=== PATIENT | female | born 1985 | race Caucasian/White ===

== ENCOUNTER → 2019-04-04 13:48 | Outpatient (BNVA) | payer MEDICARE, MEDICAID, SELFPAY | PROVIDERS: Family Provider Nurse Practitioner Family; PCP Nurse Practitioner Family; Visit Provider Nurse Practitioner Psychiatric/Mental Health | DX: F33.2 Major depressive disorder, recurrent severe without psychotic features (principal); F43.12 Post-traumatic stress disorder, chronic; F41.1 Generalized anxiety disorder; F60.3 Borderline personality disorder | CPT/HCPCS: 99214 ==

== ENCOUNTER → 2019-05-02 13:27 | Outpatient (BNVA) | payer MEDICARE, MEDICAID, SELFPAY | PROVIDERS: Family Provider Nurse Practitioner Family; PCP Nurse Practitioner Family; Visit Provider Nurse Practitioner Psychiatric/Mental Health | DX: F34.0 Cyclothymic disorder (principal); F41.1 Generalized anxiety disorder; F43.12 Post-traumatic stress disorder, chronic; F60.3 Borderline personality disorder | CPT/HCPCS: 99214 ==

== ENCOUNTER → 2019-06-04 07:20 | Outpatient (BNVA) | payer MEDICARE, MEDICAID, SELFPAY | PROVIDERS: Family Provider Nurse Practitioner Family; PCP Nurse Practitioner Family; Visit Provider Nurse Practitioner Psychiatric/Mental Health | DX: F31.32 Bipolar disorder, current episode depressed, moderate (principal); F41.1 Generalized anxiety disorder; F43.12 Post-traumatic stress disorder, chronic; F60.3 Borderline personality disorder | CPT/HCPCS: 99214 ==

== ENCOUNTER → 2019-06-06 09:00 | Outpatient (BNVA) | payer MEDICARE, MEDICAID, SELFPAY | PROVIDERS: Family Provider Nurse Practitioner Family; PCP Nurse Practitioner Family; Visit Provider Social Worker | DX: F31.32 Bipolar disorder, current episode depressed, moderate (principal); F60.3 Borderline personality disorder; F41.1 Generalized anxiety disorder; F43.12 Post-traumatic stress disorder, chronic | CPT/HCPCS: 90834 ==

== ENCOUNTER → 2019-07-03 08:12 | Outpatient (BNVA) | payer MEDICARE, MEDICAID, SELFPAY | PROVIDERS: Family Provider Nurse Practitioner Family; PCP Nurse Practitioner Family; Visit Provider Nurse Practitioner Psychiatric/Mental Health | DX: F31.32 Bipolar disorder, current episode depressed, moderate (principal); F41.1 Generalized anxiety disorder; F43.12 Post-traumatic stress disorder, chronic; F60.3 Borderline personality disorder | CPT/HCPCS: 99214 ==

== ENCOUNTER → 2019-07-31 07:35 | Outpatient (BNVA) | payer MEDICARE, MEDICAID, SELFPAY | PROVIDERS: Family Provider Nurse Practitioner Family; PCP Nurse Practitioner Family; Visit Provider Nurse Practitioner Psychiatric/Mental Health | DX: F31.32 Bipolar disorder, current episode depressed, moderate (principal); F41.1 Generalized anxiety disorder; F43.12 Post-traumatic stress disorder, chronic; F60.3 Borderline personality disorder | CPT/HCPCS: 99214 ==

== ENCOUNTER → 2019-10-23 08:26 | Outpatient (BNVA) | payer MEDICARE, MEDICAID, SELFPAY | PROVIDERS: Family Provider Nurse Practitioner Family; PCP Nurse Practitioner Family; Visit Provider Nurse Practitioner Psychiatric/Mental Health | DX: F31.32 Bipolar disorder, current episode depressed, moderate (principal); F41.1 Generalized anxiety disorder; F43.12 Post-traumatic stress disorder, chronic; F60.3 Borderline personality disorder | CPT/HCPCS: 99214 ==

== ENCOUNTER → 2019-12-18 08:03 | Outpatient (BNVA) | payer OTHER, MEDICAID, SELFPAY | PROVIDERS: Family Provider Nurse Practitioner Family; PCP Nurse Practitioner Family; Visit Provider Nurse Practitioner Psychiatric/Mental Health | DX: F31.32 Bipolar disorder, current episode depressed, moderate (principal); F41.1 Generalized anxiety disorder; F43.12 Post-traumatic stress disorder, chronic; F60.3 Borderline personality disorder | CPT/HCPCS: 99214 ==

== ENCOUNTER → 2020-01-16 08:29 | Outpatient (BNVA) | payer OTHER, MEDICAID, SELFPAY | PROVIDERS: Family Provider Nurse Practitioner Family; PCP Nurse Practitioner Family; Visit Provider Nurse Practitioner Psychiatric/Mental Health | DX: F31.32 Bipolar disorder, current episode depressed, moderate (principal); F41.1 Generalized anxiety disorder; F43.12 Post-traumatic stress disorder, chronic; F60.3 Borderline personality disorder; F33.1 Major depressive disorder, recurrent, moderate | CPT/HCPCS: 99214 ==

== ENCOUNTER → 2020-02-13 08:47 | Outpatient (BNVA) | payer OTHER, MEDICAID, SELFPAY | PROVIDERS: Family Provider Nurse Practitioner Family; PCP Nurse Practitioner Family; Visit Provider Nurse Practitioner Psychiatric/Mental Health | DX: F31.32 Bipolar disorder, current episode depressed, moderate (principal); F41.1 Generalized anxiety disorder; F43.12 Post-traumatic stress disorder, chronic; F60.3 Borderline personality disorder | CPT/HCPCS: 99214 ==

== ENCOUNTER → 2020-03-02 13:44 | Outpatient (BNVA) | payer OTHER, MEDICAID, SELFPAY | PROVIDERS: Family Provider Nurse Practitioner Family; PCP Nurse Practitioner Family; Visit Provider Family Medicine | DX: L73.8 Other specified follicular disorders (principal); R29.898 Other symptoms and signs involving the musculoskeletal system | CPT/HCPCS: 36416; 82947; 82962 ==

== ENCOUNTER → 2020-03-12 14:00 | Outpatient (BNVA) | payer OTHER, MEDICAID, SELFPAY | PROVIDERS: Family Provider Nurse Practitioner Family; PCP Nurse Practitioner Family; Visit Provider Family Medicine | DX: L73.8 Other specified follicular disorders (principal); R29.898 Other symptoms and signs involving the musculoskeletal system | CPT/HCPCS: 87070; 87205 ==

== ENCOUNTER → 2020-03-26 09:30 | Outpatient (BNVA) | payer OTHER, MEDICAID, SELFPAY | PROVIDERS: Family Provider Nurse Practitioner Family; PCP Nurse Practitioner Family; Visit Provider Nurse Practitioner Psychiatric/Mental Health | DX: F31.32 Bipolar disorder, current episode depressed, moderate (principal); F41.1 Generalized anxiety disorder; F43.12 Post-traumatic stress disorder, chronic; F60.3 Borderline personality disorder | CPT/HCPCS: 99214 ==

== ENCOUNTER → 2020-04-30 08:24 | Outpatient (BNVA) | payer OTHER, MEDICAID, SELFPAY | PROVIDERS: Family Provider Nurse Practitioner Family; PCP Nurse Practitioner Family; Visit Provider Nurse Practitioner Psychiatric/Mental Health | DX: Z87.898 Personal history of other specified conditions (principal); F31.32 Bipolar disorder, current episode depressed, moderate; F41.1 Generalized anxiety disorder | CPT/HCPCS: 99214 ==

== ENCOUNTER → 2020-05-27 08:21 | Outpatient (BNVA) | payer OTHER, SELFPAY | PROVIDERS: Family Provider Nurse Practitioner Family; PCP Nurse Practitioner Family; Visit Provider Nurse Practitioner Psychiatric/Mental Health | DX: F31.32 Bipolar disorder, current episode depressed, moderate (principal); F41.1 Generalized anxiety disorder; F43.12 Post-traumatic stress disorder, chronic; F60.3 Borderline personality disorder; Z87.898 Personal history of other specified conditions | CPT/HCPCS: 99214 ==

== ENCOUNTER 2020-06-30 20:00 | Outpatient (CLI) | payer MEDICARE, MEDICAID, SELFPAY | END 2020-06-30 20:01 | disposition home or self-care (01) | LOC: SLEEP 07-01 09:26 | PROVIDERS: Family Provider Nurse Practitioner Family; PCP Nurse Practitioner Family; Visit Provider Nurse Practitioner Psychiatric/Mental Health | DX: Z87.898 Personal history of other specified conditions (principal); R06.83 Snoring; R53.83 Other fatigue | CPT/HCPCS: 95810 ==

== ENCOUNTER → 2020-07-06 08:40 | Outpatient (BNVA) | payer MEDICARE, MEDICAID, SELFPAY | PROVIDERS: Family Provider Nurse Practitioner Family; PCP Nurse Practitioner Family; Visit Provider Nurse Practitioner Psychiatric/Mental Health | DX: F41.1 Generalized anxiety disorder (principal); F31.32 Bipolar disorder, current episode depressed, moderate; F43.12 Post-traumatic stress disorder, chronic; F60.3 Borderline personality disorder; Z87.898 Personal history of other specified conditions | CPT/HCPCS: 99214 ==

== ENCOUNTER → 2020-08-10 07:56 | Outpatient (BNVA) | payer MEDICARE, MEDICAID, SELFPAY | PROVIDERS: Family Provider Nurse Practitioner Family; PCP Nurse Practitioner Family; Visit Provider Nurse Practitioner Psychiatric/Mental Health | DX: F31.32 Bipolar disorder, current episode depressed, moderate (principal); F41.1 Generalized anxiety disorder; F43.12 Post-traumatic stress disorder, chronic; F60.3 Borderline personality disorder | CPT/HCPCS: 99214 ==

== ENCOUNTER → 2020-10-05 07:12 | Outpatient (BNVA) | payer MEDICARE, MEDICAID, SELFPAY | PROVIDERS: Family Provider Nurse Practitioner Family; PCP Nurse Practitioner Family; Visit Provider Nurse Practitioner Psychiatric/Mental Health | DX: F31.32 Bipolar disorder, current episode depressed, moderate (principal); F41.1 Generalized anxiety disorder; F43.12 Post-traumatic stress disorder, chronic; F60.3 Borderline personality disorder; Z79.899 Other long term (current) drug therapy | CPT/HCPCS: 99214 ==

== ENCOUNTER → 2020-10-07 09:01 | Outpatient (BNVA) | payer MEDICARE, MEDICAID, SELFPAY | PROVIDERS: Family Provider Nurse Practitioner Family; PCP Nurse Practitioner Family; Visit Provider Nurse Practitioner Psychiatric/Mental Health | DX: Z79.899 Other long term (current) drug therapy (principal); E78.5 Hyperlipidemia, unspecified | CPT/HCPCS: 80053; 80061; 83036 ==

== ENCOUNTER 2020-10-14 06:47 | Outpatient (CLI) | payer MEDICARE, MEDICAID, SELFPAY ==
--- NOTE | 2020-10-14 07:04 | US_ITS ---
WS: [id number] ULTRASOUND ABDOMEN CLINICAL INFORMATION: E78.5 - Hyperlipidemia, unspecified COMPARISON: None. FINDINGS: Liver Size: Enlarged Craniocaudal length: 16.1 cm. Echogenicity: Dense Surface nodularity: None. Mass (size and location): None. Bile ducts Intrahepatic ducts: Normal. Common bile duct diameter: 0.3 cm. Gallbladder Normal. Gallstones: None. Gallbladder sludge: None. Gallbladder wall thickening: None. Pericholecystic fluid: None. Sonographic Huerta sign: Absent. Pancreas Normal as visualized. Tail not well visualized. Spleen Splenomegaly: Enlarged Craniocaudal length: 13.3 cm. Right kidney: Normal. Hydronephrosis: None. Size: 10.7 cm x 5.0 cm x 4.7 cm Left kidney: Normal. Hydronephrosis: None. Size: 12.9 cm x 5.4 cm x 5.5 cm. Abdominal aorta and IVC Visualized portions are normal. Ascites: None. US/US abdomen complete* [id number] IMPRESSION: 1. Mild hepatomegaly with diffuse fatty infiltration. 2. Normal gallbladder. Normal common bile duct. 3. No hydronephrosis in either kidney. 4. Mild splenomegaly. 5. No ascites.
== END 2020-10-14 06:48 | disposition home or self-care (01) ==
LOC: RAD 06:55
PROVIDERS: PCP Family Medicine; Visit Provider Family Medicine
DX: E78.5 Hyperlipidemia, unspecified (principal); R16.0 Hepatomegaly, not elsewhere classified; K76.0 Fatty (change of) liver, not elsewhere classified; R16.1 Splenomegaly, not elsewhere classified
CPT/HCPCS: 76700

== ENCOUNTER → 2020-11-27 07:31 | Outpatient (BNVA) | payer MEDICARE, MEDICAID, SELFPAY | PROVIDERS: PCP Family Medicine; Visit Provider Nurse Practitioner Psychiatric/Mental Health | DX: F31.32 Bipolar disorder, current episode depressed, moderate (principal); F41.1 Generalized anxiety disorder; F43.12 Post-traumatic stress disorder, chronic; F60.3 Borderline personality disorder | CPT/HCPCS: 99214 ==

== ENCOUNTER → 2020-12-24 11:09 | Outpatient (BNVA) | payer MEDICARE, MEDICAID, SELFPAY | PROVIDERS: PCP Family Medicine; Visit Provider Family Medicine | DX: E78.5 Hyperlipidemia, unspecified (principal); L65.9 Nonscarring hair loss, unspecified; F31.32 Bipolar disorder, current episode depressed, moderate | CPT/HCPCS: 80053; 80061; 84439; 84443 ==

== ENCOUNTER → 2021-01-22 08:19 | Outpatient (BNVA) | payer MEDICARE, MEDICAID, SELFPAY | PROVIDERS: PCP Family Medicine; Visit Provider Nurse Practitioner Psychiatric/Mental Health | DX: F31.32 Bipolar disorder, current episode depressed, moderate (principal); F41.1 Generalized anxiety disorder; F43.12 Post-traumatic stress disorder, chronic; F60.3 Borderline personality disorder | CPT/HCPCS: 99214 ==

== ENCOUNTER 2021-02-25 10:03 | Outpatient (CLI) | payer MEDICARE, MEDICAID, SELFPAY ==
[2021-02-25 10:51] VITALS: BMI 38.9
[2021-02-25 11:30] VITALS: BP 115/81; PULSE 87; RESP 16; TEMP 36.8; O2SAT 95
[2021-02-25 12:30] VITALS: BP 112/80; PULSE 88; RESP 16; TEMP 37; O2SAT 97
== END 2021-02-25 10:04 | disposition home or self-care (01) ==
LOC: OPS 10:04
PROVIDERS: PCP Family Medicine; Visit Provider Nurse Practitioner Family
DX: U07.1 COVID-19 (principal)
CPT/HCPCS: 96365

== ENCOUNTER → 2021-03-08 07:46 | Outpatient (BNVA) | payer MEDICARE, MEDICAID, SELFPAY | PROVIDERS: PCP Family Medicine; Visit Provider Nurse Practitioner Psychiatric/Mental Health | DX: F31.32 Bipolar disorder, current episode depressed, moderate (principal); F41.1 Generalized anxiety disorder; F43.12 Post-traumatic stress disorder, chronic; F60.3 Borderline personality disorder | CPT/HCPCS: 99214 ==

== ENCOUNTER → 2021-03-10 09:17 | Outpatient (BNVA) | payer MEDICARE, MEDICAID, SELFPAY | PROVIDERS: PCP Family Medicine; Visit Provider Family Medicine | DX: E03.9 Hypothyroidism, unspecified (principal) | CPT/HCPCS: 84439; 84443 ==

== ENCOUNTER → 2021-04-19 08:20 | Outpatient (BNVA) | payer MEDICARE, MEDICAID, SELFPAY | PROVIDERS: PCP Family Medicine; Visit Provider Nurse Practitioner Psychiatric/Mental Health | DX: F31.32 Bipolar disorder, current episode depressed, moderate (principal); F41.1 Generalized anxiety disorder; F43.12 Post-traumatic stress disorder, chronic; F60.3 Borderline personality disorder | CPT/HCPCS: 99214 ==

== ENCOUNTER → 2021-05-31 08:00 | Outpatient (BNVA) | payer MEDICARE, MEDICAID, SELFPAY | PROVIDERS: PCP Family Medicine; Visit Provider Nurse Practitioner Psychiatric/Mental Health | DX: F31.32 Bipolar disorder, current episode depressed, moderate (principal); F41.1 Generalized anxiety disorder; F43.12 Post-traumatic stress disorder, chronic; F60.3 Borderline personality disorder | CPT/HCPCS: 99214 ==

== ENCOUNTER → 2021-07-26 13:08 | Outpatient (BNVA) | payer MEDICARE, MEDICAID, SELFPAY | PROVIDERS: PCP Family Medicine; Visit Provider Nurse Practitioner Psychiatric/Mental Health | DX: F31.32 Bipolar disorder, current episode depressed, moderate (principal); F41.1 Generalized anxiety disorder; F43.12 Post-traumatic stress disorder, chronic; F60.3 Borderline personality disorder; Z79.899 Other long term (current) drug therapy | CPT/HCPCS: 99214 ==

== ENCOUNTER → 2021-08-27 07:06 | Outpatient (BNVA) | payer MEDICARE, MEDICAID, SELFPAY | PROVIDERS: PCP Family Medicine; Visit Provider Nurse Practitioner Psychiatric/Mental Health | DX: F31.32 Bipolar disorder, current episode depressed, moderate (principal); F41.1 Generalized anxiety disorder; F43.12 Post-traumatic stress disorder, chronic; F60.3 Borderline personality disorder; Z79.899 Other long term (current) drug therapy | CPT/HCPCS: 99214 ==

== ENCOUNTER → 2022-01-12 10:36 | Outpatient (BNVA) | payer MEDICARE, MEDICAID, SELFPAY | PROVIDERS: PCP Family Medicine; Visit Provider Nurse Practitioner Family | DX: R05.9 Cough, unspecified (principal); Z20.822 Contact with and (suspected) exposure to COVID-19; J32.1 Chronic frontal sinusitis | CPT/HCPCS: 87400; 87426 ==

== ENCOUNTER → 2022-02-04 09:02 | Outpatient (BNVA) | payer MEDICARE, MEDICAID, SELFPAY | PROVIDERS: PCP Family Medicine; Visit Provider Nurse Practitioner Psychiatric/Mental Health | DX: Z79.899 Other long term (current) drug therapy (principal) | CPT/HCPCS: 80053; 80061; 83036 ==

== ENCOUNTER → 2022-03-10 09:02 | Outpatient (BNVA) | payer MEDICARE, MEDICAID, SELFPAY | PROVIDERS: PCP Family Medicine; Visit Provider Nurse Practitioner Family | DX: R05.9 Cough, unspecified (principal) | CPT/HCPCS: 87400 ==

== ENCOUNTER 2022-05-23 09:12 | Outpatient (CLI) | payer MEDICARE, MEDICAID, OTHER, SELFPAY ==
--- NOTE | 2022-05-23 11:19 | ECG_ITS ---
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 Measurements Intervals Barry Rate: 87 P: 48 MA: 155 QRS: 27 QRSD: 94 T: 41 QT: 370 QTc: 446 Interpretive Statements SINUS RHYTHM POSSIBLE LEFT ATRIAL ENLARGEMENT [-0.1mV P-WAVE IN V1/V2] NONSPECIFIC T-WAVE ABNORMALITY No previous ECG available for comparison Electronically Signed On 05-23-2022 16:05:05 CDT by Slade Hernandez M.D. [id number] f
== END 2022-05-23 09:13 | disposition home or self-care (01) ==
LOC: RAD 09:20
PROVIDERS: PCP Family Medicine; Visit Provider Family Medicine
DX: Z76.89 Persons encountering health services in other specified circumstances (principal)
CPT/HCPCS: 93005

== ENCOUNTER 2022-07-04 06:00 | Outpatient (RCR) | payer MEDICARE, SELFPAY | END 2022-08-03 23:59 | disposition home or self-care (01) | LOC: GPT 06:00 | PROVIDERS: Visit Provider Nurse Practitioner Family | DX: M22.2X1 Patellofemoral disorders, right knee (principal); M25.561 Pain in right knee; M76.51 Patellar tendinitis, right knee; R26.2 Difficulty in walking, not elsewhere classified | CPT/HCPCS: 97110; 97162 ==

== ENCOUNTER → 2022-07-06 10:49 | Outpatient (BNVA) | payer MEDICARE, SELFPAY | PROVIDERS: PCP Family Medicine; Visit Provider Nurse Practitioner Family | DX: M17.11 Unilateral primary osteoarthritis, right knee (principal); G89.29 Other chronic pain | CPT/HCPCS: 73562 ==

== ENCOUNTER → 2022-07-14 08:52 | Outpatient (BNVA) | payer MEDICARE, SELFPAY | PROVIDERS: PCP Family Medicine; Visit Provider Nurse Practitioner Family | DX: M25.561 Pain in right knee (principal); G89.29 Other chronic pain | CPT/HCPCS: 99214 ==

== ENCOUNTER 2022-07-14 10:48 | Outpatient (CLI) | payer MEDICARE, SELFPAY | END 2022-07-14 10:49 | disposition home or self-care (01) | LOC: SPT 10:48 | PROVIDERS: PCP Family Medicine; Visit Provider Nurse Practitioner Family | DX: Z46.89 Encounter for fitting and adjustment of other specified devices (principal); G89.29 Other chronic pain; M25.561 Pain in right knee | CPT/HCPCS: 97760; L1812 ==

== ENCOUNTER 2022-08-04 06:00 | Outpatient (RCR) | payer MEDICARE, SELFPAY | END 2022-09-02 23:59 | disposition home or self-care (01) | LOC: GPT 06:00 | PROVIDERS: Visit Provider Nurse Practitioner Family | DX: M25.561 Pain in right knee (principal); M22.2X1 Patellofemoral disorders, right knee | CPT/HCPCS: 97110; 97112; 97140; 97530 ==

== ENCOUNTER → 2022-08-31 08:23 | Outpatient (BNVA) | payer MEDICARE, SELFPAY | PROVIDERS: Visit Provider Nurse Practitioner Family | DX: M25.561 Pain in right knee (principal); G89.29 Other chronic pain | CPT/HCPCS: 99213 ==

== ENCOUNTER 2022-09-03 06:00 | Outpatient (RCR) | payer MEDICARE, SELFPAY | END 2022-10-03 23:59 | disposition home or self-care (01) | LOC: GPT 06:00 | PROVIDERS: PCP Family Medicine; Visit Provider Nurse Practitioner Family | DX: M25.561 Pain in right knee (principal); M22.2X1 Patellofemoral disorders, right knee | CPT/HCPCS: 97110; 97112; 97164; 97530 ==

== ENCOUNTER 2022-09-09 08:08 | Observation (INO) | payer MEDICARE, SELFPAY ==
[2022-09-09 08:12] VITALS: BP 162/116; PULSE 76; RESP 17; TEMP 36.7; O2SAT 100; BMI 38.0
[2022-09-09] MEDS: valproic acid inj 500 MG in sodium chloride 0.9% 50 ML 55 MG IV (09:26)
--- NOTE | 2022-09-09 09:27 | W.ED.HA ---
HPI - Headache General: Chief Complaint: Headache Stated Complaint: Head pain, N/V Time Seen by Provider: 09/09/22 08:21 Source: patient Mode of arrival: ambulatory History of Present Illness: 37-year-old female presents emergency room complaining of migraine with persistent nausea and vomiting. She has had difficulty with hyperemesis in the past. She denies any hematemesis or coffee-ground emesis no dysuria urgency or frequency no fever no recent head trauma. MD elicited complaint: migraine Onset (ago): hour(s) Onset description: gradually Location: frontal Severity: moderate Quality & Timing: throbbing Associated symptoms: Reports malaise and nausea; Deny chest pain, confusion, cough, eye pain, eye redness, fever(s), lightheadedness, loss of vision, neck stiffness, numbness, paresthesias, photophobia, pre-syncope, rash, seizures, short of breath, sound sensitivity, syncope, vomiting or weakness Review of Systems Const: Reports: malaise; Denies: fever(s) or chills Card: Denies: chest pain, lightheadedness, syncope or pre-syncope Resp: Denies: dyspnea, productive cough or non-productive cough GI: Reports: abdominal pain and nausea; Denies: vomiting : Denies: flank pain, difficulty voiding, dysuria, urinary frequency or urinary urgency Skin/Breast: Denies: rash Neuro: Denies: confusion PFSH ED PFSH: Medical History Bereavement Loss of on 05/13/22 Bipolar I disorder, most recent episode mixed, severe without psychotic features Borderline personality disorder Chronic post-traumatic stress disorder Generalized anxiety disorder Medical marijuana use Pain, Migraines Migraine Psychiatric care Social History Smoking and tobacco status: never smoked Alcohol intake: never Substance/Drug Use: current Other substance/drug use details: Medical marijuana Physical Exam Const: GENERAL APPEARANCE: cooperative and comfortable ORIENTATION/CONSCIOUSNESS: Yes awake, Yes oriented to person, Yes oriented to place and Yes oriented to time HENMT: COMMON NORMALS: normocephalic, atraumatic and hearing grossly normal bilaterally HEAD & SCALP: normocephalic and atraumatic Eye: DIRECT OPHTHALMOSCOPY: No photophobia Resp: COMMON NORMALS: normal respiratory effort, No retractions, No use of accessory muscles and clear to auscultation bilaterally AUSCULTATION: clear to auscultation bilaterally Cardio: COMMON NORMALS: regular rate, regular rhythm and No murmurs present (Cardio) RATE: regular rate RHYTHM: regular rhythm GI: COMMON NORMALS: Soft to palpation and No hepatosplenomegaly present AUSCULTATION: Yes normoactive bowel sounds PALPATION: Yes Soft to palpation, No Tenderness to palpation present (GI), No Guarding due to palpation present (GI) and Yes No hepatosplenomegaly present Extremity: COMMON NORMALS: normal to inspection, capillary refill normal, no clubbing, cyanosis or edema, no calf tenderness and no pedal edema Neuro: SENSORIUM/ORIENTATION: Yes oriented to person, Yes oriented to place and Yes oriented to time Skin: COMMON NORMALS: no rashes or lesions noted GENERAL SKIN EXAM: no rashes or lesions noted Course Vital Signs: Vital signs: Vital Signs Temperature 97.7 F 09/10/22 16:00 Pulse Rate 83 09/10/22 16:00 Respiratory Rate 16 09/10/22 16:00 Blood Pressure 141/81 09/10/22 16:00 Pulse Oximetry 96 09/10/22 16:00 Oxygen Delivery Me thod Room Air 09/10/22 04:00 MDM - Headache Medical Decision Making Patient has had several different medications as well as fluids she still having persistent nausea vomiting her lactate is elevated think it is from nausea and vomiting. Additionally she is mildly hypokalemic. Will admit for persistent nausea vomiting placed on observation discussed with hospitalist orders written. CT head negative. Medical Records I reviewed the patient's medical records. Lab Data I reviewed the patient's lab results. 09/10/22 09:39 09/10/22 09:39 Radiology Impressions Abdomen/Pelvis CT 09/09/22 12:22 Impression: Negative for acute intra-abdominal or pelvic abnormalities. Head CT 09/09/22 12:22 Impression: Negative CT scan of the head unchanged Chest X-Ray 09/09/22 16:03 IMPRESSION: No acute findings. Laboratory Results WBC 13.9 10^3/uL (4.0-10.0) H 09/09/22 09:28 RBC 4.75 10^6/uL (4.1-5.3) 09/09/22 09: Hgb 14.4 g/dL (11.5-15.3) 09/09/22 09: Hct 44.1 % (37.0-47.0) 09/09/22 09: MCV 92.8 fl (81-99) 09/09/22 09: MCH 30.3 pg (28.0-34.0) 09/09/22 09: MCHC 32.7 g/dL (30.0-36.0) 09/09/22 09: RDW 14.3 % (12.1-15.1) 09/09/22 09: Plt Count 248 10^3/cmm (130-400) 09/09/22 09: MPV 11.2 fL (7.4-10.4) H 09/09/22 09: Neut % (Auto) 87.0 % 09/09/22 09: Lymph % (Auto) 7.4 % 09/09/22 09: [place] % (Auto) 4.5 % 09/09/22 09: Eos % (Auto) 0.1 % 09/09/22 09: Baso % (Auto) 0.3 % 09/09/22 09: Neut # (Auto) 12.09 10^3/uL (1.8-7.7) H 09/09/22 09: Lymph # (Auto) 1.0 10^3/uL (0.8-4.8) 09/09/22 09: [place] # (Auto) 0.6 10^3/uL (0.2-0.9) 09/09/22 09: Eos # (Auto) 0.0 10^3/uL (0.0-0.8) 09/09/22 09: Baso # (Auto) 0.0 10^3/uL (0.0-0.1) 09/09/22 09: Nucleated RBC % (auto) 0 % 09/09/22 09: Nucleated RBCs # 0.0 /100WBC 09/09/22 09: Sodium 137 mmol/L (136-145) 09/09/22 09: Potassium 3.2 mmol/L (3.5-5.1) L 09/09/22 09:28 Chloride 97 mmol/L (98-107) L 09/09/22 09:28 Carbon Dioxide 18 mmol/L (22-29) L 09/09/22 09:28 Anion Gap 25.2 (5-19) H 09/09/22 09:28 BUN 11 mg/dL (6-20) 09/09/22 09:28 Creatinine 0.8 mg/dL (0.5-0.9) 09/09/22 09:28 GFR Calculation 79.9 mL/min (90-130) L 09/09/22 09:28 Glucose 155 mg/dL (65-115) H 09/09/22 09:28 Calculated Osmolality 287 mOsm/kg (285-295) 09/09/22 09:28 Lactic Acid 5.4 mmol/L (0.5-2.2) H* 09/09/22 14:27 Lactic Acid (Sepsis) 2.4 mmol/L (0.5-2.2) H 09/09/22 16:38 Calcium 9.6 mg/dL (8.5-10.5) 09/09/22 09:28 Magnesium 1.5 mg/dL (1.7-2.3) L 09/09/22 14:27 Total Bilirubin 0.3 mg/dL (0.15-1.2) 09/09/22 09:28 AST 21 U/L (0-32) 09/09/22 09:28 ALT 36 U/L (0-33) H 09/09/22 09:28 Alkaline Phosphatase 59 U/L (35-105) 09/09/22 09:28 Creatine Kinase 301 U/L (26-192) H 09/09/22 14:27 Total Protein 8.4 g/dL (6.6-8.7) 09/09/22 09:28 Albumin 5.2 g/dL (3.5-5.2) 09/09/22 09:28 Globulin 3.2 g/dL (1.3-4.6) 09/09/22 09:28 Lipase 16 U/L (13-60) 09/09/22 09:28 Urine Color Yellow (Yellow) 09/09/22 12:23 Urine Appearance Clear (CLEAR) 09/09/22 12:23 Urine pH 9 (5-7) H 09/09/22 12:23 Ur Specific [place] 1.015 (1.005-1.030) 09/09/22 12:23 Urine Protein Neg (Negative) 09/09/22 12:23 Urine Glucose (UA) 1+ (Normal) H 09/09/22 12:23 Urine Ketones 2+ (Negative) H 09/09/22 12:23 Urine Blood Neg (Negative) 09/09/22 12:23 Urine Nitrate Negative (Negative) 09/09/22 12:23 Urine Bilirubin Neg (Negative) 09/09/22 12:23 Prot Sulfosalicylic Acd Negative (Negative) 09/09/22 12:23 Urine Urobilinogen Norm mg/dL (Negative) 09/09/22 12:23 Ur Leukocyte Esterase Negative (Negative) 09/09/22 12:23 Salicylates < 0.3 mg/dL (3-10) L 09/09/22 14:27 Ethyl Alcohol < 10 mg/dL (0-10) 09/09/22 14:27 Serum Ketones Negative (Negative) 09/09/22 09:28 Discharge Plan Discharge Patient Disposition: Placed in Observation Admit Provider: Jan Cao Clinical Impression: Migraine, Metabolic acidosis, Hypokalemia, Intractable cyclical vomiting with nausea Condition: Stable Discharge Orders: Discharge Order (Routine); Ordered 09/10/22 Ordered By: Jan Cao Discharge Diet: Usual diet Discharge Activity: Increase activity as tolerated Coding Level of Care Code ED Story Writer for Roxi Delgado
[2022-09-09] MEDS: promethazine 25 mg/mL SDV 1 mL IM (09:40)
[2022-09-09] MEDS: ketorolac 30 mg/mL INJ IVP (09:44)
[2022-09-09] MEDS: diphenhydrAMINE 50 mg/mL SDV 1mL 25 MG IVP (09:45)
[2022-09-09] MEDS: sodium chloride 0.9% 1,000 ML 999 ML IV ×4 (09:46→17:27)
[2022-09-09] MEDS: metoclopramide 5 mg/mL SDV 2 mL 10 MG IVP (11:58)
--- NOTE | 2022-09-09 12:22 | CT_ITS ---
WS: [id number] CT scan of the abdomen and pelvis without Oral and IV contrast. Additional two-dimensional coronal a nd sagittal reconstruction was performed. 09/09/2022 Clinical Data: Abdominal pain Comparison: CT abdomen, 08/29/2016 DLP: 901.[address] scans at [place] use at least one of these dose optimization techniques: automated e xposure control; mA and/or kV adjustment per patient size (includes targeted exams where dose is matc hed to clinical indication); or iterative reconstruction. Findings: The lower lungs show no nodules, masses or effusions. The liver, gallbladder, spleen, adrenal glands and pancreas are normal. The kidneys show no cysts or masses. No hydronephrosis or renal calculi are seen. The abdominal aorta is normal in size. No appendicitis or diverticulitis is seen. The stomach, small bowel and colon are normal. There is mi nimal contrast in the cecum. No abscess, adenopathy, ascites, mass, obstruction or free air is seen. The bladder is unremarkable. The uterus is absent. No inguinal hernia is seen. The bones of the lower thorax, lumbar spine, pelvis, and hips are normal. CT/CT abdomen pelvis wo con [id number] Impression: Negative for acute intra-abdominal or pelvic abnormalities.
--- NOTE | 2022-09-09 12:22 | CT_ITS ---
WS: [id number] CT scan of the head, 09/09/2022 Clinical Data: headache w vomit ting Comparison: CT head, 09/24/2017 DLP: 1046.[address] scans at [facility] use at least one of these dose optimization techniques: automated e xposure control; mA and/or kV adjustment per patient size (includes targeted exams where dose is matc hed to clinical indication); or iterative reconstruction. Findings: The ventricular system is normal without shift. No recent infarct or hemorrhage is seen. There are no abnormal intracerebral masses. The cerebellum and brainstem are not remarkable. Bony windows of the skull and skull base show no fractures or erosions. The mastoid air cells, information technology internship al auditory canals, sella turcica, intraorbital contents, and paranasal sinuses are unremarkable. CT/CT head wo con* [id number] Impression: Negative CT scan of the head unchanged
[2022-09-09 12:35] LABS: Basophils % 0.3 %; Eosinophils % 0.1 %; Hematocrit 44.1 % (37.0-47.0); Hemoglobin 14.4 g/dL (11.5-15.3); Lymphocytes % 7.4 %; Mean Corpuscular HGB Conc 32.7 g/dL (30.0-36.0); Mean Corpuscular Hemoglobin 30.3 pg (28.0-34.0); Mean Corpuscular Volume 92.8 fl (81-99); Mean Platelet Volume 11.2 fL (7.4-10.4); Monocytes # 0.6 10^3/uL (0.2-0.9); Monocytes % 4.5 %; Neutrophils # 12.09 10^3/uL (1.8-7.7); Nucleated Red Blood Cells % 0 %; Platelet Count 248 10^3/cmm (130-400); Red Blood Count 4.75 10^6/uL (4.1-5.3); Red Cell Distribution Width 14.3 % (12.1-15.1); White Blood Count 13.9 10^3/uL (4.0-10.0)
[2022-09-09 12:46] LABS: Alanine Aminotransferase 36 U/L (0-33); Albumin Level 5.2 g/dL (3.5-5.2); Alkaline Phosphatase 59 U/L (35-105); Anion Gap 25.2 (5-19); Aspartate Amino Transferase 21 U/L (0-32); Blood Urea Nitrogen 11 mg/dL (6-20); Calcium 9.6 mg/dL (8.5-10.5); Carbon Dioxide 18 mmol/L (22-29); Chloride 97 mmol/L (98-107); Creatinine Clr Calc Pharmacy 105.0005; Globulin 3.2 g/dL (1.3-4.6); Glomerular Filtration Rate 79.9 mL/min (90-130); Glucose 155 mg/dL (65-115); Osmolality Calculated 287 mOsm/kg (285-295); Potassium 3.2 mmol/L (3.5-5.1); Sodium 137 mmol/L (136-145); Total Bilirubin 0.3 mg/dL (0.15-1.2); Total Protein 8.4 g/dL (6.6-8.7)
[2022-09-09 13:24] LABS: Add Urine Microscopic? NO; Charge for UA Resulting for Rev
[2022-09-09 13:37] LABS: Bilirubin Urine Neg (Negative); Blood Urine Neg (Negative); Glucose Urine UA 1+ (Normal); Ketones Urine 2+ (Negative); Leukocyte Esterase Urine Negative (Negative); Nitrate Urine Negative (Negative); Protein Urine Neg (Negative); Specific Gravity, Urine 1.015 (1.005-1.030); Sulfosalicylic Acid Urine Negative (Negative); Urine Appearance Clear (CLEAR); Urine Color Yellow (Yellow); Urobilinogen Urine Norm (Negative); pH Urine 9 (5-7)
[2022-09-09] MEDS: haloperidol inj 5 mg/mL INJ 1 mL 2.5 MG IVP (13:56)
[2022-09-09] MEDS: LORazepam 2 mg/mL INJ 1 mL IVP (13:56)
--- NOTE | 2022-09-09 14:37 | PC.PHAR ---
pt states she takes care of her own medications-pt states she still takes amitriptyline 100mg hs ext shows last filled 08/12/22 30 d/s for 100mg tabs take 200mg hs-pt states she has an old rx for phenergan 12.5mg and takes prn ext doesnt show when last filled-
[2022-09-09 14:38] LABS: Ketone (Acetest) Serum Negative (Negative)
[2022-09-09 14:43] LABS: Lipase 16 U/L (13-60)
[2022-09-09 15:12] LABS: Lactic Sepsis W/Reflex 5.4 mmol/L (0.5-2.2)
[2022-09-09 15:29] LABS: Creatine Phosphokinase 301 U/L (26-192)
[2022-09-09 15:33] LABS: Alcohol Level < 10 mg/dL (0-10); Salicylate < 0.3 mg/dL (3-10)
--- NOTE | 2022-09-09 15:49 | P.HP_ITS ---
Providers/Chief Complaint Primary Care Provider: Jeff Adkins DO Chief Complaint: Head pain, N/V History of Present Illness 37-year-old lady with history of migraine headache is on a monthly injection with monoclonal antibody, and for breakthrough uses Ubrelvy, has developed a migraine of several day duration for which she had taken the breakthrough medication as well as promethazine but without success. She also has been havin g nausea and vomiting for several days, states that since last night has been vomiting recurrently. This is sometimes triggered by cough as well. She has not been able to eat. Abdomen has been sore from vomiting. In ER she is afebrile, with leukocytosis 13.9, with noted hypokalemia 3.2, with anion gap 25.2, bicarb 18, glucose 155, ALT 36, 2+ ketones in urine. Additional studies obtained with lactic acid, noted elevated at 5.4. CK3 01. Lipase 16. Head CT negative, unchanged from prior. CT abdomen pelvis negative without acute abdominal or pelvic abnormality. In ER she received fluid boluses, Ativan, Haldol, Reglan, Benadryl, valproic acid Toradol, promethazine. She states that at rest currently she is doing okay, if she were to start moving around headache would likely be getting worse. Currently migraine is about 7/10. Baseline around 5/10. Review of Systems Narrative: Denies any tick bites. Const: Denies: fever(s), chills, body aches or malaise Card: Denies: chest pain, edema, pre-syncope or dyspnea on exertion Resp: Denies: dyspnea, productive cough, change in phlegm color or hemoptysis GI: Reports: abdominal pain (Abdominal wall soreness), nausea and vomiting; Denies: diarrhea, constipation, hematochezia or melena : Denies: flank pain, urinary frequency or hematuria Musc: Denies: back pain, joint swelling or joint redness Skin/Breast: Denies: rash or new lesions Neuro: Reports: headache(s) Dwayne/Lymph: Denies: easy bleeding Medications/Allergies Home Medications Medication Instructions Recorded Confirmed Last Taken Type ubrogepant 100 mg tablet (Ubrelvy) 100 mg PO DAILY PRN migraine 08/10/20 09/09/22 09/08/22 History galcanezumab-gnlm 120 mg/mL 120 mg SUBCUT Q30D 12/24/20 09/09/22 2 Weeks Ago History subcutaneous syringe (Emgality) ~08/26/22 propranolol 20 mg tablet 20 mg PO TID #270 tabs 06/06/22 09/09/22 09/08/22 Rx Hinge Knee Brace #1 ea 07/14/22 09/09/22 Unknown Rx hydroxyzine pamoate 50 mg capsule 50 mg PO BID PRN anxiety #180 caps 08/29/22 09/09/22 Unknown Rx (Vistaril) ziprasidone HCl 60 mg capsule 60 mg PO BID #180 caps 08/29/22 09/09/22 09/08/22 Rx (Geodon) amitriptyline 100 mg tablet 100 mg PO BEDTIME 09/09/22 09/09/22 09/08/22 History see pharmacy comment cetirizine 10 mg tablet (Zyrtec) 10 mg PO DAILY PRN Allergy Symptoms 09/09/22 09/09/22 Unknown History levothyroxine 75 mcg tablet 75 mcg PO QAM 09/09/22 09/09/22 Unknown History promethazine 12.5 mg tablet 12.5 mg PO TID PRN Nausea And 09/09/22 09/09/22 09/08/22 History Vomiting rosuvastatin 5 mg tablet 5 mg PO BEDTIME 09/09/22 09/09/22 09/08/22 History Allergies Allergy/AdvReac Type Severity Reaction Status Date / Time azithromycin [From Zithromax] Allergy Severe ALGY-Difficulty Verified 09/09/22 14:32 Breathing cefuroxime [From Ceftin] Allergy Severe ALGY-Difficulty Verified 09/09/22 14:32 Breathing Penicillins Allergy Severe ALGY-Difficulty Verified 09/09/22 14:32 Breathing levofloxacin [From Levaquin] Allergy Mild hypertensio Verified 09/09/22 14:32 n cyclobenzaprine AdvReac Intermediate does not Verified 09/09/22 14:32 work onabotulinumtoxinA AdvReac Intermediate itching Verified 09/09/22 14:32 [From Botox] PFSH Acute PFSH: Medical History Bereavement Loss of on 05/13/22 Bipolar I disorder, most recent episode mixed, severe without psychotic features Borderline personality disorder Chronic post-traumatic stress disorder Generalized anxiety disorder Medical marijuana use Pain, Migraines Migraine Psychiatric care Social History Smoking and tobacco status: never smoked Alcohol intake: never Substance/Drug Use: current Other substance/drug use details: Medical marijuana Vitals/I&O/Wt Last Vital Signs Temp 98.1 F 09/09/22 08:12 Pulse 76 09/09/22 08:12 Resp 17 09/09/22 08:12 BP 162/116 09/09/22 08:12 Pulse Ox 100 09/09/22 08:12 O2 Del Method Room Air 09/09/22 08:12 09/09/22 09/09/22 09/09/22 06:59 14:59 22:59 Intake Total 1055 / 1055 Balance 1055 / 1055 Weight last 48 hrs Weight 97.522 kg Physical Exam Narrative: In ER lites are drained, creatinine drawn, wearing dark sunglasses. Const: COMMON NORMALS: patient oriented x3 and alert GENERAL APPEARANCE: cooperative ORIENTATION/CONSCIOUSNESS: Yes awake OTHER: Appears uncomfortable. HENMT: OTHER: Dry appearing MM. Neck/C-Spine: COMMON NORMALS: no JVD Resp: COMMON NORMALS: normal respiratory effort and clear to auscultation bilaterally AUSCULTATION: clear to auscultation bilaterally Cardio: COMMON NORMALS: no JVD, regular rhythm, S1 normal heart sound present, S2 normal heart sound present and No murmurs present (Cardio) RHYTHM: regular rhythm HEART SOUNDS: S1 normal heart sound present and S2 normal heart sound present GI: COMMON NORMALS: Normal to inspection, nondistended, normoactive bowel sounds present and Soft to palpation PALPATION: Yes Soft to palpation OTHER: Diffusely moderately tender abdominal wall. Extremity: COMMON NORMALS: no joint enlargement and no pedal edema Neuro: COMMON NORMALS: patient oriented x3 and moves all extremities SENSORIUM/ORIENTATION: Yes alert Skin: COMMON NORMALS: no rashes or lesions noted GENERAL SKIN EXAM: no rashes or lesions noted Data 09/09/22 09:28 09/09/22 09:28 A&P Assessment and plan (1) Migraine: At home on galcanezumab monthly, and has taken Ubrelvy for breakthrough migraine , however, has not resolved. Complicated by severe intractable nausea and vomiting. Unable to tolerate oral intake. Dehydrated with metabolic acidosis. Currently symptoms 09/12. Baseline migraine 07/13. Has received Ativan, Haldol, Reglan, Benadryl, folic acid, Toradol, promethazine. Discussed consideration of additional treatment, possibly sumatriptan, possibly dihydroergotamine, however, dose medications may be associated with significant risks as well and her migraine is also well underway . As currently with some relief of symptoms, will continue with IV hydration, nausea control, Toradol as needed, promethazine, Zofran as needed, will check magnesium. If migraine persistent/worsening, consider sumatriptan, discussed risks, she also denies history of cardiovascular disease. (2) Intractable nausea and vomiting: Zofran as needed, promethazine as needed. Gentle IV hydration. N.p.o. for now with only sips, chips, meds. Pantoprazole IV. Discussed also possibility of cannabis induced hyperemesis, discussed in case of nausea vomiting and discontinue any marijuana or cannabinoid containing products, she was not previously aware, states that she will be aware now. (3) Metabolic acidosis: Noted anion gap but acidosis, bicarb 18, anion gap 25.2. Noted 2+ ketones in urine, but serum ketones negative. No history of diabetes. Requested salicylates, EtOH, ethylene glycol level, lactic acid. Lactic acid is coming back elevated at 5.4. Discussed with her. Currently does not appear in septic shock. Does have leukocytosis 13.9. Discussed possible microaspiration with vomiting. Obtain chest x-ray, however, no other signs of sepsis or septic shock. Suspect this is more related to tissue hypoperfusion with vomiting, lack of oral intake. However, possibly could be also secondary to medication adverse effect. I do not see adverse effects notable for lactic acidosis will ziprasidone, however, seems there are some reports with amitriptyline. We will hold for now. Follow-up chemistry panel. (4) Leukocytosis: Noted leukocytosis 13.9. Predominantly neutrophilia 12.09. Platelets normal.Suspect secondary to microaspiration with minimal pneumonitis following vomiting. She is otherwise afebrile. Chest x-ray obtained, on my review appears unremarkable. No tachycardia, tachypnea, or other signs of sepsis. UA unremarkable. CT abdomen pelvis unremarkable. No diarrhea. No rash. No tick bites. Follow-up CBC. (5) Hypokalemia: Secondary to emesis. Replace with IVF. Check magnesium. Follow-up chemistry in a.m. Plan Bipolar 1 FRANCISCO ER documentation reviewed. Discussed with ER physician. Attestations Medical Necessity Statement*: Place in observation for additional assessment management migraine complicated by intractable nausea and vomiting with inability to tolerate oral intake, dehydration, metabolic acidosis, leukocytosis, unresponsive to outpatient treatment. Diagnoses Migraine G43.909 Intractable nausea and vomiting R11.2 Metabolic acidosis E87.20 Leukocytosis D72.829 Hypokalemia E87.6
--- NOTE | 2022-09-09 16:03 | XRR_ITS ---
PROCEDURE INFORMATION: Exam: XR Chest Exam date and time: 09/09/2022 4:10 PM Age: 37 years old Clinical indication: Other: Vomiting; Additional info: Vomiting, leukocytosis TECHNIQUE: Imaging protocol: Radiologic exam of the chest. Views: 1 view. COMPARISON: CR XR ribs RT mn 3V w CXR1V [id number] 06/10/2018 6:34 PM FINDINGS: Lungs: Unremarkable. No consolidation. Pleural spaces: Unremarkable. No pleural effusion. No pneumothorax. Heart/Mediastinum: Unremarkable. No cardiomegaly. Bones/joints: Unremarkable. XR/XR chest 1V portable [id number] IMPRESSION: No acute findings.
[2022-09-09 16:28] LABS: Reflex Lactate Order REFLEX LACTIC ORDERD
[2022-09-09 16:46] VITALS: O2SAT 98
[2022-09-09 17:00] VITALS: BP 135/70; O2SAT 98
[2022-09-09 17:01] LABS: Lactic Acid level (Lactate) 2.4 mmol/L (0.5-2.2)
[2022-09-09 17:09] LABS: Magnesium 1.5 mg/dL (1.7-2.3)
[2022-09-09] MEDS: ondansetron 2 mg/ML SDV 2 mL 4 MG IVP (17:28)
[2022-09-09] MEDS: LORazepam 2 mg/mL INJ 1 mL 1 MG IVP (17:29)
[2022-09-09 17:30] VITALS: BP 137/82; O2SAT 98
[2022-09-09 17:55] VITALS: BP 131/78; PULSE 78; RESP 16; TEMP 36.9; O2SAT 95
[2022-09-09] MEDS: enoxaparin 40 mg/0.4 mL Syringe SUBCUT (18:31)
[2022-09-09] MEDS: D5-NS 0.45% + KCL 20 mEq 20 MEQ/1,000 ML BAG 75 MEQ IV (18:31)
[2022-09-09] MEDS: pantoprazole 40 mg SDV IVP (18:36)
[2022-09-09] MEDS: ziprasidone hcl 60 mg Capsule PO (19:09)
[2022-09-09] MEDS: ketorolac 30 mg/mL INJ 15 MG IVP (19:45)
[2022-09-09 20:00] VITALS: BP 111/68; PULSE 86; RESP 18; TEMP 36.4; O2SAT 96
[2022-09-09] MEDS: amitriptyline 25 mg Tablet 100 MG PO (21:10)
[2022-09-09] MEDS: propranolol 20 mg Tablet PO (21:10)
[2022-09-10] VITALS: BP 108/70; PULSE 83; RESP 16; TEMP 36.8; O2SAT 96
[2022-09-10 04:00] VITALS: BP 128/78; PULSE 79; RESP 16; TEMP 36.6; O2SAT 98
[2022-09-10] MEDS: ketorolac 30 mg/mL INJ 15 MG IVP ×2 (05:28→11:58)
[2022-09-10] MEDS: levothyroxine 75 mcg Tablet PO (05:28)
[2022-09-10 08:00] VITALS: BP 135/80; PULSE 80; RESP 16; TEMP 37.1; O2SAT 94
[2022-09-10] MEDS: ondansetron 2 mg/ML SDV 2 mL 4 MG IVP (08:09)
[2022-09-10] MEDS: ziprasidone hcl 60 mg Capsule PO (09:42)
[2022-09-10] MEDS: D5-NS 0.45% + KCL 20 mEq 20 MEQ/1,000 ML BAG 75 MEQ IV (09:42)
[2022-09-10] MEDS: propranolol 20 mg Tablet PO ×2 (09:42→15:46)
[2022-09-10 10:23] LABS: Basophils % 0.6 %; Eosinophils # 0.1 10^3/uL (0.0-0.8); Eosinophils % 1.5 %; Hematocrit 38.7 % (37.0-47.0); Hemoglobin 11.8 g/dL (11.5-15.3); Lymphocytes # 2.3 10^3/uL (0.8-4.8); Mean Corpuscular HGB Conc 30.5 g/dL (30.0-36.0); Mean Corpuscular Hemoglobin 29.4 pg (28.0-34.0); Mean Corpuscular Volume 96.3 fl (81-99); Mean Platelet Volume 10.3 fL (7.4-10.4); Monocytes # 0.6 10^3/uL (0.2-0.9); Monocytes % 8.2 %; Neutrophils # 3.74 10^3/uL (1.8-7.7); Neutrophils % 55.4 %; Nucleated Red Blood Cells % 0 %; Platelet Count 162 10^3/cmm (130-400); Red Blood Count 4.02 10^6/uL (4.1-5.3); Red Cell Distribution Width 14.6 % (12.1-15.1); White Blood Count 6.7 10^3/uL (4.0-10.0)
[2022-09-10] MEDS: LORazepam 2 mg/mL INJ 1 mL 1 MG IVP (10:38)
[2022-09-10 10:40] LABS: Alanine Aminotransferase 30 U/L (0-33); Alkaline Phosphatase 44 U/L (35-105); Aspartate Amino Transferase 21 U/L (0-32); Blood Urea Nitrogen 9 mg/dL (6-20); Calcium 7.8 mg/dL (8.5-10.5); Carbon Dioxide 19 mmol/L (22-29); Chloride 107 mmol/L (98-107); Globulin 2.1 g/dL (1.3-4.6); Glomerular Filtration Rate 79.9 mL/min (90-130); Glucose 80 mg/dL (65-115); Osmolality Calculated 284 mOsm/kg (285-295); Sodium 138 mmol/L (136-145); Total Bilirubin 0.3 mg/dL (0.15-1.2); Total Protein 6.1 g/dL (6.6-8.7)
[2022-09-10 10:54] LABS: 25 Hydroxy Vitamin D 23 ng/mL (30-100)
[2022-09-10] MEDS: magnesium sulfate premix 2 GM/50 ML PIGGYBACK IV (11:46)
[2022-09-10 12:00] VITALS: BP 136/88; PULSE 78; RESP 16; TEMP 36.8; O2SAT 96
[2022-09-10 16:00] VITALS: BP 141/81; PULSE 83; RESP 16; TEMP 36.5; O2SAT 96
[2022-09-10] MEDS: potassium chloride ER 20 mEq Tablet 40 MEQ PO (16:31)
--- NOTE | 2022-09-10 22:14 | PM.DCS ---
Discharge Providers Date of Admission: 09/09/22 17:06 Date of Discharge: September 10, 2022 Attending Provider at Admission: Jan Cao Attending Provider at Discharge: Jan Cao Primary Care Provider: Jeff Adkins DO Diagnoses at Discharge Discharge Diagnosis (1) Migraine: Status: Acute (2) Intractable nausea and vomiting: Status: Acute (3) Metabolic acidosis: Status: Acute (4) Leukocytosis: Status: Acute (5) Hypokalemia: Status: Acute Reason for Visit Reason for Visit: Head pain, N/V Brief History: 37-year-old lady with history of migraine headache is on a monthly injection with monoclonal antibody, and for breakthrough uses Ubrelvy, has developed a migraine of several day duration for which she had taken the breakthrough medication as well as promethazine but without success.? She also has been having nausea and vomiting for several days, states that since last night has been vomiting recurrently.? This is sometimes triggered by cough as well.? She has not been able to eat.? Abdomen has been sore from vomiting.? In ER she is afebrile, with leukocytosis 13.9, with noted hypokalemia 3.2, with anion gap 25.2, bicarb 18, glucose 155, ALT 36, 2+ ketones in urine.? Additional studies obtained with lactic acid, noted elevated at 5.4.? CK3 01.? Lipase 16.? Head CT negative, unchanged from prior.? CT abdomen pelvis negative without acute abdominal or pelvic abnormality. In ER she received fluid boluses, Ativan, Haldol, Reglan, Benadryl, valproic acid Toradol, promethazine.? She states that at rest currently she is doing okay, if she were to start moving around headache would likely be getting worse.? Currently migraine is about 7/10.? Baseline around 5/10. Hospital Course Hospital Course She received IV hydration, antiemetics, Protonix. Bowel rest. For migraine received additionally Toradol. Today she is feeling better. Migraine has improved. So far no further vomiting, some minimal nausea. She is interested in trying some clear liquids to see how she does. Discussed we will cautiously try to advance diet to assess that she is able to tolerate some oral intake before returning home, and she tolerated broth and Sprite. She knows to return in case of worsening symptoms or any new concerning symptoms. Her lactic acidosis is noted with improvement. Suspected is due to recurrent vomiting as she also has abdominal muscle soreness, but discussed lower chance of possibly being related to amitriptyline with some rare reports. Discussed to discontinue medication and seek medical attention in case feeling worse on resuming this medication. Additionally we discussed and she is now aware of the possibility of cannabinoid hyperemesis syndrome, and will be vigilant for this possibility. Additionally she is started on potassium replacement due to hypokalemia noted in the hospital, magnesium placement due to same, and is started on vitamin D due to noted 25 OH vitamin D of 23. Please follow-up these levels. She is asked to follow-up with her neurologist for reassessment. Physical Exam Narrative: Today she appears more comfortable. She is pleasant, conversant, not in distress. Appears more energized and in better spirits. Reports she is feeling better. Const: COMMON NORMALS: patient oriented x3 and alert GENERAL APPEARANCE: cooperative ORIENTATION/CONSCIOUSNESS: Yes awake HENMT: COMMON NORMALS: oropharynx normal Neck/C-Spine: COMMON NORMALS: no JVD Resp: COMMON NORMALS: normal respiratory effort and clear to auscultation bilaterally AUSCULTATION: clear to auscultation bilaterally Cardio: COMMON NORMALS: no JVD, regular rhythm, S1 normal heart sound present, S2 normal heart sound present and No murmurs present (Cardio) RHYTHM: regular rhythm HEART SOUNDS: S1 normal heart sound present and S2 normal heart sound present GI: COMMON NORMALS: Normal to inspection, nondistended, normoactive bowel sounds present, Soft to palpation and non-tender PALPATION: Yes Soft to palpation Extremity: COMMON NORMALS: no joint enlargement and no pedal edema Neuro: COMMON NORMALS: patient oriented x3 and moves all extremities SENSORIUM/ORIENTATION: Yes alert Skin: COMMON NORMALS: no rashes or lesions noted GENERAL SKIN EXAM: no rashes or lesions noted Discharge Data Studies Completed and Pending Completed Studies During Hospitalization Category Date Time Status CT abdomen pelvis wo con [id number] Stat Cat Scan 09/09/22 12:[address] head wo con* [id number] Stat Cat Scan 09/09/22 12:22 Completed CXRP [XR chest 1V portable [id number]] Stat Exams 09/09/22 16:03 Completed Pending at discharge Category Date Time Status Blood Culture Stat Lab 09/09/22 16:38 Results Ethylene Glycol Routine Lab 09/09/22 14:27 Received Radiology Impressions Abdomen/Pelvis CT 09/09/22 12:22 Impression: Negative for acute intra-abdominal or pelvic abnormalities. Head CT 09/09/22 12:22 Impression: Negative CT scan of the head unchanged Chest X-Ray 09/09/22 16:03 IMPRESSION: No acute findings. Laboratory Results WBC 6.7 10^3/uL (4.0-10.0) 09/10/22 09:39 RBC 4.02 10^6/uL (4.1-5.3) L 09/10/22 09:39 Hgb 11.8 g/dL (11.5-15.3) 09/10/22 09:39 Hct 38.7 % (37.0-47.0) 09/10/22 09:39 MCV 96.3 fl (81-99) 09/10/22 09:39 MCH 29.4 pg (28.0-34.0) 09/10/22 09:39 MCHC 30.5 g/dL (30.0-36.0) D 09/10/22 09:39 RDW 14.6 % (12.1-15.1) 09/10/22 09:39 Plt Count 162 10^3/cmm (130-400) D 09/10/22 09:39 MPV 10.3 fL (7.4-10.4) 09/10/22 09:39 Neut % (Auto) 55.4 % 09/10/22 09:39 Lymph % (Auto) 34.0 % 09/10/22 09:39 [place] % (Auto) 8.2 % 09/10/22 09:39 Eos % (Auto) 1.5 % 09/10/22 09:39 Baso % (Auto) 0.6 % 09/10/22 09:39 Neut # (Auto) 3.74 10^3/uL (1.8-7.7) 09/10/22 09:39 Lymph # (Auto) 2.3 10^3/uL (0.8-4.8) 09/10/22 09:39 [place]ala # (Auto) 0.6 10^3/uL (0.2-0.9) 09/10/22 09:39 Eos # (Auto) 0.1 10^3/uL (0.0-0.8) 09/10/22 09:39 Baso # (Auto) 0.0 10^3/uL (0.0-0.1) 09/10/22 09:39 Nucleated RBC % (auto) 0 % 09/10/22 09:39 Nucleated RBCs # 0.0 /100WBC 09/10/22 09:39 Sodium 138 mmol/L (136-145) 09/10/22 09:39 Potassium 3.0 mmol/L (3.5-5.1) L 09/10/22 09:39 Chloride 107 mmol/L (98-107) 09/10/22 09:39 Carbon Dioxide 19 mmol/L (22-29) L 09/10/22 09:39 Anion Gap 15.0 (5-19) 09/10/22 09:39 BUN 9 mg/dL (6-20) 09/10/22 09:39 Creatinine 0.8 mg/dL (0.5-0.9) 09/10/22 09:39 GFR Calculation 79.9 mL/min (90-130) L 09/10/22 09:39 Glucose 80 mg/dL (65-115) 09/10/22 09:39 Calculated Osmolality 284 mOsm/kg (285-295) L 09/10/22 09:39 Lactic Acid 5.4 mmol/L (0.5-2.2) H* 09/09/22 14:27 Lactic Acid (Sepsis) 2.4 mmol/L (0.5-2.2) H 09/09/22 16:38 Calcium 7.8 mg/dL (8.5-10.5) L 09/10/22 09:39 Magnesium 1.5 mg/dL (1.7-2.3) L 09/09/22 14:27 Total Bilirubin 0.3 mg/dL (0.15-1.2) 09/10/22 09:39 AST 21 U/L (0-32) 09/10/22 09:39 ALT 30 U/L (0-33) 09/10/22 09:39 Alkaline Phosphatase 44 U/L (35-105) 09/10/22 09:39 Creatine Kinase 301 U/L (26-192) H 09/09/22 14:27 Total Protein 6.1 g/dL (6.6-8.7) L 09/10/22 09:39 Albumin 4.0 g/dL (3.5-5.2) 09/10/22 09:39 Globulin 2.1 g/dL (1.3-4.6) 09/10/22 09:39 Lipase 16 U/L (13-60) 09/09/22 09:28 25-OH Vitamin D Total 23 ng/mL (30-100) L 09/10/22 09:39 Urine Color Yellow (Yellow) 09/09/22 12:23 Urine Appearance Clear (CLEAR) 09/09/22 12:23 Urine pH 9 (5-7) H 09/09/22 12:23 Ur Specific [place] 1.015 (1.005-1.030) 09/09/22 12:23 Urine Protein Neg (Negative) 09/09/22 12:23 Urine Glucose (UA) 1+ (Normal) H 09/09/22 12:23 Urine Ketones 2+ (Negative) H 09/09/22 12:23 Urine Blood Neg (Negative) 09/09/22 12:23 Urine Nitrate Negative (Negative) 09/09/22 12:23 Urine Bilirubin Neg (Negative) 09/09/22 12:23 Prot Sulfosalicylic Acd Negative (Negative) 09/09/22 12:23 Urine Urobilinogen Norm mg/dL (Negative) 09/09/22 12:23 Ur Leukocyte Esterase Negative (Negative) 09/09/22 12:23 Salicylates < 0.3 mg/dL (3-10) L 09/09/22 14:27 Ethyl Alcohol < 10 mg/dL (0-10) 09/09/22 14:27 Serum Ketones Negative (Negative) 09/09/22 09:28 Vitals Last Vital Signs Temp 97.7 F 09/10/22 16:00 Pulse 83 09/10/22 16:00 Resp 16 09/10/22 16:00 BP 141/81 09/10/22 16:00 Pulse Ox 96 09/10/22 16:00 O2 Del Method Room Air 09/10/22 04:00 Discharge Plan Discharge Patient Disposition: Home Condition: Stable Prescriptions: New potassium chloride 20 mEq tablet extended release 20 meq PO DAILY Qty: 14 0RF magnesium oxide 250 mg magnesium tablet 500 mg PO DAILY Qty: 180 0RF cholecalciferol (vitamin D3) 1,250 mcg (50,000 unit) capsule 50,000 unit PO .weekly 56 Days Qty: 8 0RF Continued Emgality Syringe 120 mg/mL syringe 120 mg SUBCUT Q30D Ubrelvy 100 mg tablet 100 mg PO DAILY PRN (Reason: migraine) propranolol 20 mg tablet 20 mg PO TID Qty: 270 2RF hydroxyzine pamoate [Vistaril] 50 mg capsule 50 mg PO BID PRN (Reason: anxiety) Qty: 180 2RF ziprasidone HCl [Geodon] 60 mg capsule 60 mg PO BID Qty: 180 2RF Rx Instructions: with 500 calorie meal/snack (DME) Hinge Knee Brace See Rx Instructions .Route .MEDSUPPLY Qty: 1 0RF Rx Instructions: As directed Zyrtec 10 mg Tablet 10 mg PO DAILY PRN (Reason: Allergy Symptoms) promethazine 12.5 mg Tablet 12.5 mg PO TID PRN (Reason: Nausea And Vomiting) amitriptyline 100 mg tablet 100 mg PO BEDTIME levothyroxine 75 mcg tablet 75 mcg PO QAM rosuvastatin 5 mg tablet 5 mg PO BEDTIME Discharge Orders: Discharge Order (Routine); Ordered 09/10/22 Ordered By: Jan Cao Referrals: Jeff Adkins DO [Primary Care Provider] - 4-7 days (Sent message to clinic.) Discharge Diet: Usual diet Discharge Activity: Increase activity as tolerated Patient Instructions: Potassium Chloride (By mouth), Vitamin D (By mouth), Migraine Headache (GEN), Acute Nausea and Vomiting (GEN), Opioid Safety, Pain Management Activity Restrictions/Additional Instructions: Please follow-up with your neurologist for further headache management return if you have any worsening or new concerning symptoms. You are given potassium supplementation due to low potassium level, please have your primary doctor follow-up your potassium level at next visit. Your magnesium level was noted Lovenox for, you received replacement, please continue supplementation. Take two 250 mg tablets, but if you develop diarrhea, reduce to 1 tablet. Have your primary doctor follow-up your magnesium level. Your vitamin D level is noted low, 23 ng/mL. You are given vitamin D supplementation 50,000 international units weekly, for 8 weeks, please follow-up with your primary doctor regarding vitamin D deficiency and follow-up level to make sure it increases above 30, then continue maintenance 0413-7353 international units/day. Please note that amitriptyline could be associated with headache, and rare instance could be associated with lactic acidosis. In case you experience any worsening or symptoms with restarting amitriptyline, please seek medical attention for additional evaluation. Discuss with your neurologist. As discussed please be mindful of possibility of cannabinoid hyperemesis syndrome. Please do not resume marijuana until your nausea and vomiting are resolved entirely, in case nausea returns with cannabinoid use, discontinue immediately. Discharge Attestations Time Spent in Discharge Care*: greater than 30 min Quality Metrics Clinical Quality Measures [ No reported AMI, CVA or VTE this stay] Coding Level of Care Code Acute Code for Chg Fwd Diagnoses Migraine G43.909 Intractable nausea and vomiting R11.2 Metabolic acidosis E87.20 Leukocytosis D72.829 Hypokalemia E87.6
[2022-09-13 15:55] LABS: Ethylene Glycol <10.0 mg/L (***)
== END 2022-09-10 18:01 | disposition home or self-care (01) ==
LOC: ER 16:04 → MEDSURG 09-10 02:24
PROVIDERS: Admitting Provider Internal Medicine; Emergency Provider Family Medicine; PCP Family Medicine; Visit Provider Internal Medicine
DX: G43.909 Migraine, unspecified, not intractable, without status migrainosus (principal); Z79.899 Other long term (current) drug therapy; Z63.4 Disappearance and death of family member; F31.63 Bipolar disorder, current episode mixed, severe, without psychotic features; F60.3 Borderline personality disorder; F43.12 Post-traumatic stress disorder, chronic; F41.1 Generalized anxiety disorder; E86.0 Dehydration; E87.20 Acidosis, unspecified; E87.6 Hypokalemia; E55.9 Vitamin D deficiency, unspecified; F12.90 Cannabis use, unspecified, uncomplicated
CPT/HCPCS: 36415; 70450; 71045; 74176; 80053; 80307; 81003; 82009; 82306; 82550; 82693; 83605; 83690; 83735; 85025; 87040; 96365; 96367; 96372; 96375; 96376; 99285; C9113; G0378; J1200; J1630; J1650; J1885; J2060; J2405; J2550; J2765; J3475; J3490; J7030

== ENCOUNTER → 2022-09-13 17:00 | Outpatient (BNVA) | payer MEDICARE, SELFPAY | PROVIDERS: PCP Family Medicine; Visit Provider Nurse Practitioner Family | DX: E83.42 Hypomagnesemia (principal); E87.6 Hypokalemia; R11.0 Nausea; G43.909 Migraine, unspecified, not intractable, without status migrainosus; E55.9 Vitamin D deficiency, unspecified | CPT/HCPCS: 80053; 82306; 83735; 85025 ==

== ENCOUNTER → 2022-09-23 16:18 | Outpatient (BNVA) | payer MEDICARE, MEDICAID, SELFPAY | PROVIDERS: PCP Family Medicine; Visit Provider Nurse Practitioner Family | DX: E83.42 Hypomagnesemia (principal); E87.6 Hypokalemia; G43.909 Migraine, unspecified, not intractable, without status migrainosus; R11.0 Nausea; E55.9 Vitamin D deficiency, unspecified | CPT/HCPCS: 80053; 82306; 83735; 85025 ==

== ENCOUNTER 2022-10-19 08:25 | Outpatient (CLI) | payer MEDICARE, MEDICAID, SELFPAY ==
--- NOTE | 2022-10-19 08:45 | MR_ITS ---
WS: [id number] MRI RIGHT KNEE NONCONTRAST TECHNIQUE: Axial PD, coronal PD fat sat, coronal PD, sagittal PD, and sagittal PD fat-sat images obta robertd. CLINICAL INFORMATION: M17.9 - Osteoarthritis of knee, unspecified COMPARISON: None. FINDINGS: Distal quadriceps and patellar tendons are intact. Normal ACL and PCL. Small suprapatellar effusion. 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 Shallow trochlear groove. Recommend correlati on for patellar instability. Medial patellar retinaculum appears intact. Lateral collateral ligament appears intact. Biceps femoris appears intact. Medial collateral ligament appears intact. Normal popliteal fossa. Moderate chondromalacia medial joint compartment with chondral fissuring invo lving the medial femoral condyle. No subchondral edema. IMPRESSION: 1. Normal ACL and PCL. 2. 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 This is advanced for patient t his age. No subchondral edema. 3. Somewhat shallow trochlear groove., Correlation for patellar instability. 4. Medial and lateral collateral ligaments appear intact. 5. Grade III chondromalacia medial joint compartment with chondral fissuring involving the medial fe moral condyle. This is advanced for a patient this age. Outbridge grading: grade III: partial-thickness cartilage loss with focal ulceration
== END 2022-10-19 08:26 | disposition home or self-care (01) ==
PROVIDERS: PCP Family Medicine; Visit Provider Nurse Practitioner Family
DX: M17.11 Unilateral primary osteoarthritis, right knee (principal); G89.29 Other chronic pain; M22.41 Chondromalacia patellae, right knee
CPT/HCPCS: 73721

== ENCOUNTER → 2022-10-24 12:45 | Outpatient (BNVA) | payer MEDICARE, MEDICAID, SELFPAY | PROVIDERS: PCP Family Medicine; Visit Provider Nurse Practitioner Family | DX: M25.561 Pain in right knee (principal); G89.29 Other chronic pain | CPT/HCPCS: 20610; 99213; J1100; J2795; J3301 ==

== ENCOUNTER 2022-12-03 08:58 | Emergency (ER) | payer MEDICARE, MEDICAID, SELFPAY ==
[2022-12-03 09:00] VITALS: BP 176/103; PULSE 94; RESP 18; TEMP 36.8; O2SAT 100; BMI 38.9
--- NOTE | 2022-12-03 09:14 | W.ED.HA ---
HPI - Headache General: Chief Complaint: Headache Stated Complaint: migraine, NV Time Seen by Provider: 12/03/22 09:03 Source: patient Mode of arrival: ambulatory History of Present Illness: 37-year-old female presents emergency room complaining of migraine headache with nausea and vomiting. She has a history of migraines similar to what she has had in the past. She has developed photophobia photophobia and nausea and vomiting with this. No hematochezia melena hematemesis coffee-ground emesis. Has had similar issues in the past. This feels like her typical migraines. MD elicited complaint: migraine Onset (ago): hour(s) Onset description: gradually Quality & Timing: throbbing Exacerbating factors: light and noise Relieving factors: nothing Associated symptoms: Reports nausea and vomiting; Deny chest pain, confusion, cough, diaphoresis, eye pain, eye redness, fever(s), lightheadedness, loss of vision, malaise, neck stiffness, numbness, paresthesias, photophobia, pre-syncope, rash, seizures, short of breath, sound sensitivity, syncope or weakness Treatments prior to arrival: none Review of Systems Const: Denies: fever(s), chills, malaise or diaphoresis ENMT: Denies: throat pain, ear or mastoid pain, nasal discharge or nasal congestion Card: Denies: chest pain, lightheadedness, syncope or pre-syncope Resp: Denies: dyspnea, productive cough or non-productive cough GI: Reports: nausea and vomiting; Denies: abdominal pain : Denies: flank pain, difficulty voiding, dysuria, urinary frequency or urinary urgency Musc: Denies: neck pain or back pain Skin/Breast: Denies: rash Neuro: Reports: headache(s); Denies: confusion PFSH ED PFSH: Medical History Bereavement Loss of on 05/13/22 Bipolar I disorder, most recent episode mixed, severe without psychotic features Borderline personality disorder Chronic post-traumatic stress disorder Generalized anxiety disorder Medical marijuana use Pain, Migraines Migraine Psychiatric care Social History Smoking and tobacco status: never smoked Alcohol intake: never Substance/Drug Use: current Other substance/drug use details: Medical marijuana Physical Exam Const: GENERAL APPEARANCE: cooperative ORIENTATION/CONSCIOUSNESS: Yes awake, Yes oriented to person, Yes oriented to place and Yes oriented to time HENMT: COMMON NORMALS: normocephalic, atraumatic and hearing grossly normal bilaterally HEAD & SCALP: normocephalic and atraumatic Eye: DIRECT OPHTHALMOSCOPY: No photophobia Resp: COMMON NORMALS: normal respiratory effort, No retractions, No use of accessory muscles and clear to auscultation bilaterally AUSCULTATION: clear to auscultation bilaterally Cardio: COMMON NORMALS: regular rate, regular rhythm and No murmurs present (Cardio) RATE: regular rate RHYTHM: regular rhythm GI: COMMON NORMALS: Soft to palpation and No hepatosplenomegaly present AUSCULTATION: Yes normoactive bowel sounds PALPATION: Yes Soft to palpation, No Tenderness to palpation present (GI), No Guarding due to palpation present (GI) and Yes No hepatosplenomegaly present Extremity: COMMON NORMALS: normal to inspection, capillary refill normal, no clubbing, cyanosis or edema, no calf tenderness and no pedal edema Neuro: SENSORIUM/ORIENTATION: Yes oriented to person, Yes oriented to place and Yes oriented to time Skin: COMMON NORMALS: no rashes or lesions noted GENERAL SKIN EXAM: no rashes or lesions noted Course Vital Signs: Vital signs: Vital Signs Temperature 98.2 F 12/03/22 09:00 Pulse Rate 100 12/03/22 13:30 Respiratory Rate 16 12/03/22 13:30 Blood Pressure 147/89 12/03/22 12:30 Pulse Oximetry 100 12/03/22 13:30 Oxygen Delivery Me thod Room Air 12/03/22 09:00 MDM - Headache Medical Decision Making Migraine improved with medications. Discharge home. Patient will continue current medications at home follow-up with primary care to adjust medications further as needed for headache prophylaxis and rescue therapy. Medical Records I reviewed the patient's medical records. Lab Data I reviewed the patient's lab results. No radiology studies performed this visit Discharge Plan Discharge Patient Disposition: Home Clinical Impression: Migraine Condition: Stable Prescriptions: No Action Emgality Syringe 120 mg/mL syringe 120 mg SUBCUT Q30D Ubrelvy 100 mg tablet 100 mg PO DAILY PRN (Reason: migraine) propranolol 20 mg tablet 20 mg PO TID Qty: 270 2RF ziprasidone HCl [Geodon] 60 mg capsule 60 mg PO BID Qty: 180 2RF Rx Instructions: with 500 calorie meal/snack (DME) Hinge Knee Brace See Rx Instructions .Route .MEDSUPPLY Qty: 1 0RF Rx Instructions: As directed haloperidol 0.5 mg tablet 0.5 mg PO BID PRN (Reason: anxiety/nausea and vomiting) Qty: 60 3RF Rx Instructions: May take 1 tab twice per day as needed for anxiety/nausea & vomiting rosuvastatin 5 mg tablet 5 mg PO BEDTIME Qty: 90 3RF cetirizine [Zyrtec] 10 mg Tablet 10 mg PO DAILY PRN (Reason: Allergy Symptoms) promethazine 12.5 mg Tablet 12.5 mg PO TID PRN (Reason: Nausea And Vomiting) amitriptyline 100 mg tablet 100 mg PO BEDTIME levothyroxine 75 mcg tablet 75 mcg PO QAM potassium chloride 20 mEq tablet extended release 20 meq PO DAILY Qty: 14 0RF magnesium oxide 250 mg magnesium tablet 500 mg PO DAILY Qty: 180 0RF cholecalciferol (vitamin D3) 1,250 mcg (50,000 unit) capsule 1,250 mcg PO Q7D Discharge Orders: Discharge ED (Routine); Ordered 12/03/22 Ordered By: Tiburcio Soliman Referrals: Jeff Adkins DO [Primary Care Provider] - Discharge Diet: Usual diet Discharge Activity: Increase activity as tolerated Patient Instructions: Migraine Headache (ED), Opioid Safety, Pain Management Coding Level of Care Code ED Operating Engineer Apprentice for Roxi Delgado
[2022-12-03] MEDS: promethazine 25 mg/mL SDV 1 mL IM (09:18)
[2022-12-03] MEDS: ketorolac 30 mg/mL INJ IVP (09:21)
[2022-12-03] MEDS: sodium chloride 0.9% 1,000 ML 999 ML IV (09:22)
[2022-12-03] MEDS: valproic acid inj 500 MG in sodium chloride 0.9% 50 ML 55 MG IV ×2 (09:22→12:01)
[2022-12-03 10:05] VITALS: BP 203/115; PULSE 96; RESP 16; O2SAT 100
[2022-12-03 10:35] VITALS: BP 128/70; PULSE 96; RESP 16; O2SAT 99
[2022-12-03 11:05] VITALS: BP 161/123; PULSE 129; RESP 16; O2SAT 99
[2022-12-03] MEDS: metoclopramide 5 mg/mL SDV 2 mL 10 MG IVP (11:40)
[2022-12-03 12:30] VITALS: BP 147/89; PULSE 102; RESP 16; O2SAT 100
[2022-12-03 13:30] VITALS: PULSE 100; RESP 16; O2SAT 100
== END 2022-12-03 13:33 | disposition home or self-care (01) ==
PROVIDERS: Emergency Provider Family Medicine; PCP Family Medicine
DX: G43.909 Migraine, unspecified, not intractable, without status migrainosus (principal)
CPT/HCPCS: 96365; 96372; 96375; 99284; J1885; J2550; J2765; J3490; J7030

== ENCOUNTER → 2023-01-19 09:47 | Outpatient (BNVA) | payer MEDICARE, OTHER, SELFPAY | PROVIDERS: PCP Family Medicine; Visit Provider Nurse Practitioner Psychiatric/Mental Health | DX: Z79.899 Other long term (current) drug therapy (principal) | CPT/HCPCS: 80061; 83036 ==

== ENCOUNTER 2023-03-29 10:46 | Emergency (ER) | payer MEDICARE, SELFPAY ==
[2023-03-29 10:52] VITALS: BP 123/90; PULSE 79; RESP 16; TEMP 36.6; O2SAT 98; BMI 38.9
--- NOTE | 2023-03-29 11:06 | W.ED.HA ---
HPI - Headache General: Chief Complaint: Headache Stated Complaint: headache Time Seen by Provider: 03/29/23 10:57 Source: patient Mode of arrival: ambulatory Limitations: no limitations History of Present Illness: 37-year-old female who has a history of migraine headaches states she had a migraine over the last week and a half. States headache today is a 8 out of 10. States she does have photophobia and phonophobia she had some nausea she denies any fevers denies this being the worst headache of her life. Associated symptoms: Reports chest pain; Deny fever(s), nausea, rash or vomiting Review of Systems Const: Denies: fever(s), chills, body aches or change in appetite Eyes: Denies: blurry vision or eye discomfort ENMT: Denies: throat pain or dental pain Card: Reports: chest pain Resp: Denies: dyspnea GI: Denies: abdominal pain, nausea, vomiting or diarrhea Musc: Denies: neck pain or back pain Skin/Breast: Denies: rash Neuro: Denies: headache(s) PFSH ED PFSH: Medical History Bereavement Loss of on 05/13/22 Bipolar I disorder, most recent episode mixed, severe without psychotic features Medical marijuana use Pain, Migraines Psychiatric care Borderline personality disorder Generalized anxiety disorder Chronic post-traumatic stress disorder Migraine Social History Smoking and tobacco/nicotine status: never used tobacco/nicotine Alcohol intake: never Substance/Drug Use: current Other substance/drug use details: Medical marijuana Physical Exam Const: COMMON NORMALS: no acute distress, patient oriented x3 and healthy appearing HENMT: COMMON NORMALS: normocephalic and atraumatic HEAD & SCALP: normocephalic and atraumatic Eye: COMMON NORMALS: Equal, round and reactive pupils present and EOMs intact bilaterally PUPIL: Yes Equal, round and reactive pupils present Neck/C-Spine: COMMON NORMALS: full ROM and supple Chest: COMMONS NORMALS: normal inspection of the chest and normal palpation of entire chest wall Resp: COMMON NORMALS: normal respiratory effort, No retractions, No use of accessory muscles and clear to auscultation bilaterally AUSCULTATION: clear to auscultation bilaterally Cardio: COMMON NORMALS: regular rate, regular rhythm and No murmurs present (Cardio) RATE: regular rate RHYTHM: regular rhythm GI: COMMON NORMALS: Normal to inspection, nondistended, normoactive bowel sounds present, Soft to palpation, non-tender and no masses PALPATION: Yes Soft to palpation Extremity: COMMON NORMALS: normal to inspection and full ROM Neuro: COMMON NORMALS: patient oriented x3, moves all extremities and no focal motor deficits Psych: COMMON NORMALS: mental status grossly normal, Normal thought process present and cooperative THOUGHT PROCESS: Normal thought process present Skin: COMMON NORMALS: no rashes or lesions noted and no wounds GENERAL SKIN EXAM: no rashes or lesions noted Course Vital Signs: Vital signs: Vital Signs Temperature 97.8 F 03/29/23 10:52 Pulse Rate 83 03/29/23 12:32 Respiratory Rate 17 03/29/23 12:28 Blood Pressure 151/84 03/29/23 12:32 Pulse Oximetry 99 03/29/23 12:32 Oxygen Delivery Me thod Room Air 03/29/23 12:32 MDM - Headache Medical Decision Making Patient presents here with a headaches likely migraine headache she feels much improved here she has no signs of meningitis or subretinal hemorrhage she is stable for discharge she is follow-up with PCP and return if worsening. Medical Records I reviewed the patient's medical records. No radiology studies performed this visit Discharge Plan Discharge Patient Disposition: Home Clinical Impression: Headache Condition: Stable Prescriptions: No Action Emgality Syringe 120 mg/mL syringe 120 mg SUBCUT Q30D Ubrelvy 100 mg tablet 100 mg PO DAILY PRN (Reason: migraine) ziprasidone HCl [Geodon] 80 mg capsule 80 mg PO BID Qty: 180 2RF Rx Instructions: with 500 calorie meal/snack gabapentin 300 mg capsule 300 mg PO BID PRN (Reason: anxiety/bruxism) Qty: 60 2RF (DME) Hinge Knee Brace See Rx Instructions .Route .MEDSUPPLY Qty: 1 0RF Rx Instructions: As directed propranolol 20 mg tablet 20 mg PO TID Qty: 270 2RF rosuvastatin 5 mg tablet 5 mg PO BEDTIME Qty: 90 3RF cetirizine [Zyrtec] 10 mg Tablet 10 mg PO DAILY PRN (Reason: Allergy Symptoms) amitriptyline 100 mg tablet 100 mg PO BEDTIME magnesium oxide 250 mg magnesium tablet 500 mg PO DAILY Qty: 180 0RF promethazine 25 mg tablet 25 mg PO Q6H PRN (Reason: nausea/emesis) Vitamin D3 125 mcg (5,000 unit) Tablet 125 mcg PO DAILY levothyroxine 75 mcg tablet 75 mcg PO DAILY Discharge Orders: Discharge ED (Routine); Ordered 03/29/23 Ordered By: Bud Contreras Referrals: Jeff Adkins DO [Primary Care Provider] - 1-3 days Discharge Diet: Advance as tolerated Discharge Activity: Resume usual activity Patient Instructions: Migraine Headache (ED) Coding Level of Care Code ED Nail Polish Brush Machine Feeder for Roxi Delgado
[2023-03-29] MEDS: ketorolac 30 mg/mL INJ 15 MG IVP (11:20)
[2023-03-29] MEDS: diphenhydrAMINE 50 mg/mL SDV 1mL IVP (11:20)
[2023-03-29] MEDS: metoclopramide 5 mg/mL SDV 2 mL 10 MG IVP (11:20)
[2023-03-29 12:28] VITALS: RESP 17; O2SAT 99
[2023-03-29] MEDS: morphine 4 mg/mL SDV 1 mL IVP (12:28)
[2023-03-29] MEDS: ondansetron 2 mg/ML SDV 2 mL 4 MG IVP (12:28)
[2023-03-29 12:32] VITALS: BP 151/84; PULSE 83; O2SAT 99
[2023-03-29 13:45] VITALS: BP 120/58; PULSE 64; O2SAT 96
== END 2023-03-29 13:46 | disposition home or self-care (01) ==
PROVIDERS: Emergency Provider Emergency Medicine; PCP Family Medicine
DX: R51.9 Headache, unspecified (principal)
CPT/HCPCS: 96374; 96375; 99284; J1200; J1885; J2270; J2405; J2765

== ENCOUNTER → 2023-06-06 12:47 | Outpatient (BNVA) | payer MEDICARE, OTHER, SELFPAY | PROVIDERS: PCP Family Medicine; Visit Provider Nurse Practitioner Psychiatric/Mental Health | DX: F31.63 Bipolar disorder, current episode mixed, severe, without psychotic features (principal); Z79.899 Other long term (current) drug therapy; Z63.4 Disappearance and death of family member; F41.1 Generalized anxiety disorder; F43.12 Post-traumatic stress disorder, chronic; F60.3 Borderline personality disorder | CPT/HCPCS: 80053; 80061; 83036 ==

== ENCOUNTER 2023-06-26 09:07 | Emergency (ER) | payer MEDICARE, MEDICAID, SELFPAY ==
[2023-06-26 09:13] VITALS: BP 148/103; PULSE 77; RESP 16; TEMP 36.8; O2SAT 97; BMI 39.4
--- NOTE | 2023-06-26 09:22 | ED_ITS ---
HPI - Headache General: Chief Complaint: Headache Stated Complaint: headache Time Seen by Provider: 06/26/23 09:09 Source: patient Mode of arrival: ambulatory Limitations: no limitations History of Present Illness: Patient is a 38-year-old female with a longstanding history of chronic uncontrolled migraines here with complaints of a migraine over the past 7 days. Patient states she has a neurologist in [place] that she sees. She is currently on Ubrelvy but states they are trying to change this medication as it does not seem to be controlling her headaches-they are having insurance issues not wanting to cover. Patient states she will have a headache 20+ days of the month. Patient is reporting headache is worse with light and sound. She states her headache today is identical to previous migraines. She has been to the ED previously before with migraine headaches and states typical migraine cocktail works. She is not having any visual changes. No neck pain. No fevers. MD elicited complaint: headache and migraine Pertinent past history: migraines Onset (ago): day(s) Severity: severe Pain scale (0-10): 9 Exacerbating factors: light and noise Relieving factors: nothing Associated symptoms: Reports nausea; Deny chest pain, confusion, fever(s), malaise, rash or vomiting Treatments prior to arrival: migraine medication Review of Systems Const: Denies: fever(s), chills, body aches, fatigue or malaise Eyes: Reports: photophobia; Denies: change in vision, blurry vision, floaters or seeing flashes Card: Denies: chest pain or palpitations Resp: Denies: dyspnea GI: Reports: nausea; Denies: abdominal pain or vomiting : Denies: flank pain or dysuria Musc: Denies: neck pain, back pain or joint pain Skin/Breast: Denies: rash Neuro: Reports: headache(s); Denies: numbness in extremities, weakness in extremities, sensory changes, lack of coordination, difficulty walking, frequent falls, dizziness, vertigo, confusion, behavioral changes, Slurred speech present, difficulty communicating thoughts or seizure-like activity [facility] ED PFSH: Medical History Bereavement Loss of on 05/13/22 Bipolar I disorder, most recent episode mixed, severe without psychotic features Medical marijuana use Pain, Migraines Psychiatric care Borderline personality disorder Generalized anxiety disorder Chronic post-traumatic stress disorder Migraine Social History Smoking and tobacco/nicotine status: never used tobacco/nicotine Alcohol intake: never Substance/Drug Use: current Other substance/drug use details: Medical marijuana Physical Exam Const: COMMON NORMALS: no acute distress, patient oriented x3, no limitations, alert and well nourished GENERAL APPEARANCE: cooperative NUTRITIONAL APPEARANCE: obese (BMI 39.5) ORIENTATION/CONSCIOUSNESS: Yes awake, Yes oriented to person, Yes oriented to place and Yes oriented to time HENMT: COMMON NORMALS: normocephalic and atraumatic HEAD & SCALP: normal to inspection, normocephalic and atraumatic FACE & SINUS: normal facial exam, sinuses nontender and face symmetric Eye: COMMON NORMALS: Equal, round and reactive pupils present and EOMs intact bilaterally GENERAL EYE: appearance normal, both eyes and all related structures and normal light reflex PUPIL: Yes Equal, round and reactive pupils present DIRECT OPHTHALMOSCOPY: Yes normal light reflex Neck/C-Spine: COMMON NORMALS: full ROM, no lymphadenopathy and no meningeal signs GI: COMMON NORMALS: Normal to inspection, nondistended, normoactive bowel sounds present, Soft to palpation, non-tender, No hepatosplenomegaly present and no masses INSPECTION: Yes normal to inspection AUSCULTATION: Yes normoactive bowel sounds PALPATION: Yes Soft to palpation, No Tenderness to palpation present (GI), No Guarding due to palpation present (GI) and Yes No hepatosplenomegaly present Neuro: HELEN COMA SCALE: document GCS findings Helen coma scale eye opening: Spontaneous Helen coma scale verbal response: Orientated [place] coma scale motor response: Obey commands Helen coma scale total score: 15 COMMON NORMALS: patient oriented x3, CN's II-XII intact bilaterally, moves all extremities, no focal motor deficits, no sensory deficits noted and gait normal SENSORIUM/ORIENTATION: Yes alert, Yes oriented to person, Yes oriented to place and Yes oriented to time MENINGEAL SIGNS: Yes no meningeal signs Course Vital Signs: Vital signs: Vital Signs Temperature 98.2 F 06/26/23 09:13 Pulse Rate 76 06/26/23 09:40 Respiratory Rate 16 06/26/23 09:40 Blood Pressure 148/103 06/26/23 09:40 Pulse Oximetry 97 06/26/23 09:40 Oxygen Delivery Me thod Room Air 06/26/23 09:13 MDM - Headache Medical Decision Making LOPEZ feeling better after IV meds/fluids. She feels comfortable going home at this time. She states she will follow up with neurologist. Differential Diagnosis Likely migraine No radiology studies performed this visit Discharge Plan Discharge Patient Disposition: Home Clinical Impression: Migraine Qualifiers: Migraine type: chronic migraine (15 or more days per month) without aura Status migrainosus presence: with status migrainosus Intractability: not intractable Qualified Code(s): G43.701 - Chronic migraine without aura, not intractable, with status migrainosus Condition: Stable Prescriptions: No Action Ubrelvy 100 mg tablet 100 mg PO DAILY PRN (Reason: migraine) (DME) Hinge Knee Brace See Rx Instructions .Route .MEDSUPPLY Qty: 1 0RF Rx Instructions: As directed propranolol 20 mg tablet 20 mg PO TID Qty: 270 2RF gabapentin 300 mg capsule 300 mg PO TID PRN (Reason: anxiety/bruxism) Qty: 90 3RF Rx Instructions: Take one capsule three times per day as needed for anxiety/bruxism rosuvastatin 5 mg tablet 5 mg PO BEDTIME Qty: 90 3RF oxcarbazepine [Trileptal] 300 mg tablet 300 mg PO DIRECTED Qty: 30 3RF Rx Instructions: Take one tablet twice per day: every morning and at 4 pm cetirizine [Zyrtec] 10 mg Tablet 10 mg PO DAILY PRN (Reason: Allergy Symptoms) amitriptyline 100 mg tablet 100 mg PO BEDTIME magnesium oxide 250 mg magnesium tablet 500 mg PO DAILY Qty: 180 0RF promethazine 25 mg tablet 25 mg PO Q6H PRN (Reason: nausea/emesis) Vitamin D3 125 mcg (5,000 unit) Tablet 125 mcg PO DAILY levothyroxine 75 mcg tablet 75 mcg PO DAILY Discharge Orders: Discharge ED (Routine); Ordered 06/26/23 Ordered By: Patience Roberts Referrals: Jeff Adkins DO [Primary Care Provider] - Patient Instructions: Headache - Migraine (Adult), Migraine Headache (ED) Coding Level of Care Code ED Editor House Organ for Thongg Danny
[2023-06-26] MEDS: ketorolac 60 mg/2 mL INJ 30 MG IVP (09:34)
[2023-06-26] MEDS: ondansetron 2 mg/ML SDV 2 mL 4 MG IVP (09:35)
[2023-06-26] MEDS: dexamethasone 10 mg/mL INJ IV (09:36)
[2023-06-26] MEDS: diphenhydrAMINE 50 mg/mL SDV 1mL IVP (09:39)
[2023-06-26] MEDS: sodium chloride 0.9% 1,000 ML 999 ML IV (09:39)
[2023-06-26 09:40] VITALS: BP 148/103; PULSE 76; RESP 16; O2SAT 97
[2023-06-26] MEDS: metoclopramide 5 mg/mL SDV 2 mL 10 MG IVP (10:42)
[2023-06-26] MEDS: dihydroergotamine 1 mg/mL Inj IVP (10:42)
== END 2023-06-26 11:24 | disposition home or self-care (01) ==
PROVIDERS: Emergency Provider Physician Assistant; PCP Family Medicine
DX: G43.701 Chronic migraine without aura, not intractable, with status migrainosus (principal)
CPT/HCPCS: 96361; 96374; 96375; 99284; 99285; J1100; J1110; J1200; J1885; J2405; J2765; J7030

== ENCOUNTER → 2023-10-30 09:26 | Outpatient (BNVA) | payer MEDICARE, OTHER, SELFPAY | PROVIDERS: PCP Nurse Practitioner Family; Visit Provider Nurse Practitioner Psychiatric/Mental Health | DX: Z79.899 Other long term (current) drug therapy (principal) | CPT/HCPCS: 80053 ==

== ENCOUNTER → 2023-12-07 08:23 | Outpatient (BNVA) | payer MEDICARE, SELFPAY | PROVIDERS: PCP Nurse Practitioner Family; Visit Provider Nurse Practitioner Family | DX: E55.9 Vitamin D deficiency, unspecified (principal); E03.9 Hypothyroidism, unspecified | CPT/HCPCS: 80061; 82306; 84439; 84443 ==

== ENCOUNTER 2023-12-20 11:59 | Outpatient (CLI) | payer MEDICARE, SELFPAY ==
--- NOTE | 2023-12-20 12:00 | MM_ITS ---
WS: [id number] BILATERAL SCREENING DIGITAL TOMOSYNTHESIS MAMMOGRAM WITH CAD HISTORY: Z12.39 - Encounter for other screening for malignant neop... COMPARISON: None available. Bilateral CC and MLO views with tomosynthesis and synthetic mammography submitted. Computer aided det ection analyzed. Breast composition: The breasts are almost entirely fatty. No suspicious masses, microcalcifications or architectural distortion. Scattered asymmetries with no distortion. No mass. There are a few benig n calcifications within each breast. MM/MM scr tomosynthesis [id number] IMPRESSION: BI-RADS: 2 - Benign. FOLLOW UP: 1 Year Follow-up
== END 2023-12-20 12:00 | disposition home or self-care (01) ==
LOC: MOBLMAM 12:01
PROVIDERS: PCP Nurse Practitioner Family; Visit Provider Nurse Practitioner Family
DX: Z12.31 Encounter for screening mammogram for malignant neoplasm of breast (principal); R92.313 Mammographic fatty tissue density, bilateral breasts; N64.89 Other specified disorders of breast; R92.1 Mammographic calcification found on diagnostic imaging of breast
CPT/HCPCS: 77063; 77067

== ENCOUNTER → 2024-05-21 11:46 | Outpatient (BNVA) | payer MEDICARE, OTHER, SELFPAY | PROVIDERS: PCP Nurse Practitioner Family; Visit Provider Nurse Practitioner Psychiatric/Mental Health | DX: Z79.899 Other long term (current) drug therapy (principal) | CPT/HCPCS: 80053; 80061; 82306; 83036 ==

== ENCOUNTER → 2024-05-28 10:30 | Outpatient (BNVA) | payer MEDICARE, SELFPAY | PROVIDERS: PCP Nurse Practitioner Family; Visit Provider Family Medicine | DX: E03.9 Hypothyroidism, unspecified (principal); E87.1 Hypo-osmolality and hyponatremia | CPT/HCPCS: 80048; 84439; 84443 ==

== ENCOUNTER → 2024-08-29 08:23 | Outpatient (BNVA) | payer MEDICARE, SELFPAY | PROVIDERS: PCP Nurse Practitioner Family; Referring Provider Nurse Practitioner Psychiatric/Mental Health; Visit Provider Nurse Practitioner Family | DX: Z79.899 Other long term (current) drug therapy (principal) | CPT/HCPCS: 80053; 82306; 82607; 85025 ==

== ENCOUNTER 2024-10-18 15:49 | Emergency (ER) | payer MEDICARE, SELFPAY ==
--- OUTSIDE RECORDS SUMMARY | 2024-10-14 06:00 | XMS_ITS ---
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 Role Phone None, None Primary Care Provider Elvira Almaraz Unavailable [phone] REASON FOR VISIT [PAY] TIRZ Medications Medication SIG (Take, Route, Frequency, Duration) Notes Start Date End Date Status Haloperidol 0.5 MG 1 tablet Orally Once a day As needed Active ZyrTEC 10 MG 1 tablet Orally Once a day Active Vitamin D3 1.25 MG (68121 UT) 1 capsule Orally weekly Acti ve Levothyroxine Sodium 75 MCG 1 tablet in the morning on an empty stomach Orally Once a day Active Amitriptyline HCl 100 MG 1 tablet at bed time Orally Once a day Active Magnesium Oxide 250 MG 1 tablet as neede d Orally Once a day Active Promethazine HCl 25 MG 1 tablet as needed Orally every 12 hrs As needed Active Propranolol HCl 20 MG 1 tablet Orally Tw ice a day Active Trileptal 300 MG 1 tablet Orally Twic e a day Active Trileptal 150 MG 1 tablet Orally Twic e a day Active Pepcid 20 MG 1 tablet at bedtime as needed Orally Once a day Active Vraylar 3 MG 1 capsule Orally Onc e a day Active Rosuvastatin Calcium 10 MG 1 tablet Oral ly Once a day Active Ubrelvy 100 MG 1 tablet as needed, may take second dose at least 2 hours after first dose up to 2 tablets per day as needed Orally Once a day Active Vital Signs Heart Rate 90 /min 10/14/2024 Height 63 in 10/14/2024 Oximetry 96 % 10/14/2024 Encounters Encounter Location Date Provider Diagnosis [facility] [address] [facility] [place] [address] 10/14/2024 Elviralisa Schultz 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 Z79.899 Assessments Encounter Date Diagnosis (ICD Code) Assessment Notes Treatment Notes Treatment Clinical Notes Section Notes 10/14/2024 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 (ICD-10 - Z79.899) Plan Of Treatment Next Appt Details Follow Up: 1 Week, Reason: t irzepatide Provider Name:Elvira gerard, 10/21/2024 11:15:00 AM, [address] [facility] [place], [address], Provider Name:Elvira gerard, 10/28/2024 11:45:00 AM, [address] [place] [address], [place], [address], Medications Administered Medication Instructions Date of Administration Dosage Notes Tirzepatide 10/14/2024 7.5 mg Progress Notes * Bernadette MCFADDENOB:1985 (39 yo F)Acc No.[id number]:10/14/2024 Progress Note Patient: Eduard HILL Pam DUTTA Provider: Maribel Schultz APRN, CNP :1985 A ge:39 Y S ex:Female Date:10/14/2024 Address:[address] Subjective: * Chief Complaints: * 1 . [PAY] TIRZ. * HPI: C onstitutional: Pt. presents to clinic for Personal Supply Tirzepatide 7.5 Mg. Pt. reports tolerating medication well with no adverse events to note. * Medical History: * Medications: T aking Pepcid 20 MG Tablet 1 tablet at bedtime as needed Orally Once a day , Taking Vraylar 3 MG Capsule 1 capsule Orally Once a day , Taking Ubrelvy 100 MG Tablet 1 tablet as needed, may take second dose at least 2 hours after first dose up to 2 tablets per day as needed Orally Once a day , Taking Rosuvastatin Calcium 10 MG Tablet 1 tablet Orally Once a day , Taking Propranolol HCl 20 MG Tablet 1 tablet Orally Twice a day , Taking Promethazine HCl 25 MG Tablet 1 tablet as needed Orally every 12 hrs As needed, Taking Trileptal 150 MG Tablet 1 tablet Orally Twice a day , Taking Trileptal 300 MG Tablet 1 tablet Orally Twice a day , Taking Magnesium Oxide 250 MG Tablet 1 tablet as needed Orally Once a day , Taking Haloperidol 0.5 MG Tablet 1 tablet Orally Once a day As needed, Taking Vitamin D3 1.25 MG (73346 UT) Capsule 1 capsule Orally weekly , Taking ZyrTEC 10 MG Tablet Chewable 1 tablet Orally Once a day , Taking Amitriptyline HCl 100 MG Tablet 1 tablet at bedtime Orally Once a day , Taking Levothyroxine Sodium 75 MCG Tablet 1 tablet in the morning on an empty stomach Orally Once a day Objective: * Vitals: H R:90/min, Ht: 63 in, Oxygen sat %:96%, Ht-cm: 160.02 cm. Assessment: * Assessment: 1. 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 * Sign off status: Completed true * Provider: Maribel Schultz APRN, IRON INSTALLER Date: 10/14/2024 Generated for Dakota baltazar/Tona/Darcy on: 10/18/2024 03:53 PM CDT
--- OUTSIDE RECORDS SUMMARY | 2024-10-18 15:53 | XMS_ITS | Patient Health Record ---
Author Organization [employer] Address [address] [place] [address] Care Team Providers Care Manager Strategy & Account Name Role Phone None, None Primary Care Provider Elvira Almaraz Unavailable [phone] Allergies Allergen (clinical drug ingredient) Drug/Non Drug Allergy documented on EMR Reaction Allergy Type Onset Date Status botulinum toxin type A Botox Persistent Migraine Drug Allergy Active Levaquin hives Drug Allergy Active azithromycin Zithromax hives Drug Allergy Acti ve amoxicillin Amoxicillin hives Drug Allergy Act javier cephalexin Cephalexin hives Drug Allergy Activ e Reason For Referral No Information Medications Medication SIG (Take, Route, Frequency, Duration) Notes Start Date End Date Status Haloperidol 0.5 MG 1 tablet Orally Once a day As needed Active Magnesium Oxide 250 MG 1 tablet as neede d Orally Once a day Active Pepcid 20 MG 1 tablet at bedtime as needed Orally Once a day Active ZyrTEC 10 MG 1 tablet Orally Once a day Active Vitamin D3 1.25 MG (53441 UT) 1 capsule Orally weekly Acti ve Levothyroxine Sodium 75 MCG 1 tablet in the morning on an empty stomach Orally Once a day Active Amitriptyline HCl 100 MG 1 tablet at bed time Orally Once a day Active Vraylar 3 MG 1 capsule Orally Onc e a day Active Rosuvastatin Calcium 10 MG 1 tablet Oral ly Once a day Active Ubrelvy 100 MG 1 tablet as needed, may take second dose at least 2 hours after first dose up to 2 tablets per day as needed Orally Once a day Active Promethazine HCl 25 MG 1 tablet as needed Orally every 12 hrs As needed Active Propranolol HCl 20 MG 1 tablet Orally Tw ice a day Active Trileptal 300 MG 1 tablet Orally Twic e a day Active Trileptal 150 MG 1 tablet Orally Twic e a day Active Social History Tobacco Use: Social History Observation Description Date Details (start date - stop date) Never Smoker NA - NA Tobacco Use/Smoking Question Answer Notes Are you a: never smoker Problems Problem Type SNOMED Code ICD Code Onset Dates Problem Status W/U Status Risk Notes Problem Body mass index 30.00 to 34.99 (524967346137542 ) Body mass index [BMI] 31.0-31.9, adult (Z68.31) Active confirmed Problem Body mass index 30.00 to 34.99 (982883043566183 ) Body mass index [BMI] 34.0-34.9, adult (Z68.34) Active confirmed Problem Body mass index 35.00 to 39.99 (695600436183274 ) Body mass index [BMI] 39.0-39.9, adult (Z68.39) Active confirmed Problem Body mass index 30+ - obesity (839970776) Body mass index [BMI] 30.0-30.9, adult (Z68.30) Active confirmed Problem Vitamin D deficiency (86442231) Vitamin D deficiency (E55.9) Active confirmed Problem Generalized anxiety disorder (28930247) Anxiety, generalized (F41.1) Active confirmed Problem Thyroid disease (55504329) Thyroid disease (E07.9) Active confirmed Problem Bipolar disorder (00099757) Bipolar affective disorder, remission status unspecified (F31.9) Active confirmed Problem Body mass index 30.00 to 34.99 (347413962493586 ) Body mass index 33.0-33.9, adult (Z68.33) Active confirmed Problem Migraine (46296965) Migraine syndrome (G43.909) Active confirmed Vital Signs Heart Rate 90 /min 10/14/2024 Respiratory Rate 18 /min 09/16/2024 Oximetry 96 % 10/14/2024 Blood pressure diastolic 74 mm Hg 09/30/2024 Height 63 in 10/14/2024 Blood pressure systolic 132 mm Hg 09/30/2024 Weight 171.4 lbs 09/30/2024 BMI 30.36 kg/m2 09/30/2024 Encounters Encounter Location Date Provider Diagnosis [address] [place] [address] 01/02/2024 Elvira Antoine Dietary counseling a nd surveillance Z71.3 ; Bipolar affective disorder, remission status unspecified F31.9 ; Anxiety, generalized F41.1 ; Thyroid disease E07.9 ; Mild depression F32.A ; Migraine syndrome G43.909 ; Vitamin D deficiency E55.9 ; Body mass index [BMI] 39.0-39.9, adult Z68.39 ; History of supraventricular tachycardia Z86.79 ; Inappropriate diet and eating habits Z72.4 and 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 Z79.8[address] [facility] [address] [place] [address] 01/09/2024 Elvira [place] Body mass index [BMI ] 39.0-39.9, adult Z68.39 [facility] [address] [place] [address] 01/16/2024 Elvira Antoine Body mass index [BMI ] 39.0-39.9, adult Z68.39 [facility] [address] [place] [address] 01/23/2024 Elvira [place] Body mass index [BMI ] 39.0-39.9, adult Z68.39 [facility] [address] [place] [address] 02/13/2024 Elvira [place] Body mass index [BMI ] 39.0-39.9, adult Z68.39 [facility] [address] [place] [address] 02/19/2024 Elvira [place] Dietary counseling a nd surveillance Z71.3 ; Thyroid disease E07.9 ; Bipolar affective disorder, remission status unspecified F31.9 ; Anxiety, generalized F41.1 ; Mild depression F32.A ; Migraine syndrome G43.909 ; Vitamin D deficiency E55.9 ; Body mass index [BMI] 39.0-39.9, adult Z68.39 ; History of supraventricular tachycardia Z86.79 ; Inappropriate diet and eating habits Z72.4 and Other senior care (current) drug therapy Z79.8[address] [facility] [address] [place] [address] 02/26/2024 Elvira Antoine History of supraventricular tachycardia Z86.79 [facility] [address] [facility] [place] [address] 03/04/2024 Elvira [place] History of supraventricular tachycardia Z86.79 [facility] [address] [place] [address] 03/11/2024 Elvira [place] Other senior care (current) drug therapy Z79.8[address] [facility] [address] [place] [address] 03/20/2024 Elvira [place] 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 Z79.8[address] [facility] [address] [place] [address] 03/25/2024 Elvira [place] Other senior care (current) drug therapy Z79.8[address] [facility] [address] [place] [address] 04/02/2024 Elvira [place] Dietary counseling a nd surveillance Z71.3 ; Thyroid disease E07.9 ; Bipolar affective disorder, remission status unspecified F31.9 ; Anxiety, generalized F41.1 ; Mild depression F32.A ; Migraine syndrome G43.909 ; Vitamin D deficiency E55.9 ; Body mass index [BMI] 39.0-39.9, adult Z68.39 ; History of supraventricular tachycardia Z86.79 ; Inappropriate diet and eating habits Z72.4 and 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 9 [facility] [address] [place] [address] 04/16/2024 Elvira [place] Thyroid disease E07. 9 [facility] [address] [place] [address] 04/22/2024 Elvira [place] Thyroid disease E07. 9 [facility] [address] [place] [address] 05/07/2024 Elvira [place] Dietary counseling a nd surveillance Z71.3 ; Thyroid disease E07.9 ; Bipolar affective disorder, remission status unspecified F31.9 ; Anxiety, generalized F41.1 ; Mild depression F32.A ; Migraine syndrome G43.909 ; Vitamin D deficiency E55.9 ; History of supraventricular tachycardia Z86.79 ; Inappropriate diet and eating habits Z72.4 ; Other senior care (current) drug therapy Z79.899 and Body mass index [BMI] 34.0-34.9, adult Z68.34 [facility] [address] [place] [address] 05/07/2024 Elvira [place] [facility] [address] [place] [address] 05/14/2024 Elvira [place] Thyroid disease E07. 9 [facility] [address] [place] [address] 05/27/2024 Elvira Antoine Thyroid disease E07. 9 [facility] [address] [place] [address] 06/04/2024 Elvira Antoine Thyroid disease E07. 9 [facility] [address] [place] [address] 06/11/2024 Elvira Antoine Dietary counseling a nd surveillance Z71.3 ; Thyroid disease E07.9 ; Bipolar affective disorder, remission status unspecified F31.9 ; Anxiety, generalized F41.1 ; Mild depression F32.A ; Migraine syndrome G43.909 ; Vitamin D deficiency E55.9 ; History of supraventricular tachycardia Z86.79 ; Inappropriate diet and eating habits Z72.4 ; Other senior care (current) drug therapy Z79.899 and Body mass index 33.0-33.9, adult Z68.33 [facility] [address] [place] [address] 06/18/2024 Elvira Antoine Thyroid disease E07. 9 [facility] [address] [place] [address] 06/25/2024 Elvira [place] Thyroid disease E07. 9 [facility] [address] [place] [address] 07/08/2024 Elvira [place] Thyroid disease E07. 9 ; Vitamin D deficiency E55.9 ; Dietary counseling and surveillance Z71.3 ; History of supraventricular tachycardia Z86.79 ; Inappropriate diet and eating habits Z72.4 ; Other senior care (current) drug therapy Z79.899 and Body mass index 33.0-33.9, adult Z68.33 [facility] [address] [place] [address] 07/15/2024 Elvira [place] Dietary counseling a nd surveillance Z71.3 [facility] [address] [place] [address] 07/22/2024 Elvira Antoine Dietary counseling a nd surveillance Z71.3 [facility] [address] [facility] [place] [address] 08/05/2024 Elvira [place] Thyroid disease E07. 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 9 [facility] [address] [place] [address] 08/19/2024 Elvira Antoine Thyroid disease E07. 9 [facility] [address] [place] [address] 08/26/2024 Elvira [place] Thyroid disease E07. 9 [facility] [address] [place] [address] 09/02/2024 Elvira Antoine Thyroid disease E07. 9 ; Vitamin D deficiency E55.9 ; Dietary counseling and surveillance Z71.3 ; History of supraventricular tachycardia Z86.79 ; Inappropriate diet and eating habits Z72.4 ; Other senior care (current) drug therapy Z79.899 and Body mass index [BMI] 31.0-31.9, adult Z68.31 [facility] [address] [facility] [place] [address] 09/09/2024 Elvira [place] Thyroid disease E07. 9 [facility] [address] [place] [address] 09/16/2024 Elvira [place] Other senior care (current) drug therapy Z79.899 [facility] [address] [facility] [place] [address] 09/23/2024 Elvira [place] Other senior care (current) drug therapy Z79.8[address] [facility] [address] [place] [address] 09/30/2024 Elvira Antoine Thyroid disease E07. 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 Z79.899 [facility] [address] [facility] [place] [address] 01/03/2024 Elvira Antoine [facility] [address] [place] [address], [place] [address] 02/19/2024 Elvira Antoine [facility] [address] [place] [address], [place] [address] 07/08/2024 Elvira Antoine [facility] [address] [place] [address], [place] [address] 08/05/2024 Elvira Antoine [facility] [address] [place] [address], [place] [address] 09/30/2024 Elvira Antoine Assessments Encounter Date Diagnosis (ICD Code) Assessment Notes Treatment Notes Treatment Clinical Notes Section Notes 01/02/2024 Dietary counseling and surveillance (ICD-10 - Z71.3) We have discussed the importance of diet, exercise, water, and sleep in weight loss. I have educated patient that 5-7% weight loss is a good initial attainable goal, and has health benefits of reduced risk of HTN and DM, etc. We have discussed the negative impact of skipping meals on metabolism, and I recommend either 6 small meals a day vs. 3 meals and 2 snacks. We have discussed pros and cons of different diet approaches including low carb, IM, and calorie counting. I have provided patient with handouts on the DASH diet to use as a guide for healthy food choices and reviewed handout with patient. For healthy weight loss, I have recommended that patient aim for a protein minimum of 95-130g, and maximum of 1600 calories per day. I have also given patient handout of high protein foods/snack choices. I have recommended using an fili like [employer], [employer], etc. for logging this. Recommended increasing water intake with an ultimate goal of 100oz per day (body weight/2= # of oz). Exercise goal 30 min 3x per week of intentional exercise or 10,000 steps per day, which patient can keep track of with a smart watch or smart phone. Sleep goal of 8 hours per night. We have discussed the importance of normal sleep hours for the body to rest and sleeps influence on hormone levels that can ultimately affect weight loss. Patient verbalizes understanding that medication is an addition to these 4 core requirements for healthy lifestyle and weight loss. We have reviewed medication options including short vs. senior care use, and oral vs. injectable routes including Phentermine, Topiramate, Contrave, Semaglutide, etc. Side effect profile reviewed. Patient would like to start Semaglutide injections. Patient will receive first dose today at 0.25mg and return weekly for injections. Administration, dosage titration, and studies showing 1 year of therapy for maximum medication benefit were discussed. Side effect profiles reviewed include swelling/redness /itching at the injection site, tiredness, nausea, vomiting, diarrhea, or constipation may occur. Nausea usually lessens as you continue to use Semaglutide. Risk of pancreas and gallbladder disease (s/s persistent N/V, abdominal, or stomach pain) and thyroid gland malignancy (including MTC). We also reviewed and discussed the pricing sheet for the medication along with other costs including self injection vs. office injections. She will come back to see me in 3 months or sooner if needed. She will come in weekly for injections and monthly for nurse visits. I will get her labs from her PCP for our records. She may benefit from Metformin but I would like to see her labs first. I will consider fasting labs if needed. Patient encouraged to call sooner with any questions or concerns. All questions that were asked were answered. Patient is satisfied with plan of care. 01/02/2024 Bipolar affective disorder, remission status unspecified (ICD-10 - F31.9) 01/09/2024 Body mass index [BMI] 39.0-39.9, adult (ICD-10 - Z68.39) 01/16/2024 Body mass index [BMI] 39.0-39.9, adult (ICD-10 - Z68.39) 01/23/2024 Body mass index [BMI] 39.0-39.9, adult (ICD-10 - Z68.39) 02/13/2024 Body mass index [BMI] 39.0-39.9, adult (ICD-10 - Z68.39) 02/19/2024 Dietary counseling and surveillance (ICD-10 - Z71.3) We discussed increasing her dose of semaglutide today to help with further appetite suppression and decrease in food noise/cravings. She agrees so I will increase her dose to 0.5mg of semaglutide once a week. She will continue to come in weekly for her injections. I encouraged her to monitor her eating habits closely, counting calories and protein to make sure she is getting enough in a day. She can try to meal prep for dinners to see if this helps keep her on track. I also discussed setting three non-negotiable goals a week including her steps, water intake, and something with her diet. She plans to start increasing her activity and exercise with the new year. Her total weight loss since 01/01 is 10 pounds, I have praised her on this loss. I will see her back in a month for further evaluation of her goals and weight. All questions were answered and she agrees with this plan. 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 She is taking a daily Pepcid to help with her acid reflux and reports good control with that. She is having little less appetite suppression we discussed increasing her dose or keep her at her current dose. She is down another 11 pounds this month and has had really good weight loss since starting the medication. She would like to increase slightly so we will go to 0.75 mg of semaglutide a week and see how she does. She will continue to come in for her shots. I encouraged her to continue with healthy eating habits and to try to start incorporating some exercise. I will plan to see her back in a month for further evaluation of her weight and goals. All questions were answered and she agrees with this plan. 02/19/2024 Thyroid disease (ICD-10 - E07.9) thyroid has been stable per patient. She will continue levothyroxine as per PCP. 04/09/2024 Thyroid disease (ICD-10 - E07.9) 04/16/2024 Thyroid disease (ICD-10 - E07.9) 04/22/2024 Thyroid disease (ICD-10 - E07.9) 05/07/2024 Dietary counseling and surveillance (ICD-10 - Z71.3) As she is not tolerating the semaglutide well I will stop this. I will start her on tirzepatide 2.5mg weekly and see how she does. She will come into the office weekly for her injections. She is going to get back onto a healthy diet once her symptoms have resolved and will also try to increase her activity. I will see her back with me in a month for further evaluation of her weight and goals. All questions were answered and she agrees with this plan. 05/14/2024 Thyroid disease (ICD-10 - E07.9) continue levothyroxine as prescribed by PCP. 05/27/2024 Thyroid disease (ICD-10 - E07.9) continue levothyroxine as prescribed by PCP. 06/04/2024 Thyroid disease (ICD-10 - E07.9) continue levothyroxine as prescribed by PCP. 06/11/2024 Dietary counseling and surveillance (ICD-10 - Z71.3) To further aid in the food noise and craving control I will increase her tirzepatide to 5 mg weekly. She will continue to come into the office for those injections. I praised her hard work and encouraged her to continue eating a healthy diet. I will see her back in a month for further evaluation of her weight and goals. She is aware of the FDA's decision regarding compounded tirzepatide and how this could affect her in the future. All questions were answered and she agrees with this plan. 06/18/2024 Thyroid disease (ICD-10 - E07.9) Continue levothyroxine as prescribed by PCP and keep routine follow-ups as scheduled. 06/25/2024 Thyroid disease (ICD-10 - E07.9) Continue levothyroxine as prescribed by PCP and keep routine follow-ups as scheduled. 07/15/2024 Dietary counseling and surveillance (ICD-10 - Z71.3) She is having good appetite suppression and weight loss she would like to continue tirzepatide 5 mg weekly. She will continue to come into the office for these injections. She is aware of our decreasing office supply and the need to order a vial of tirzepatide. She will place that order today prior to leaving and a prescription will be sent to [facility] for tirzepatide. I encouraged her to conitnue a healthy low fat diet and continue to exercise. I praised her on her hard work thus far. I will see her back with me in a month for further evaluation of her weight and goals. I strongly recommended that she do a body composition scan at [facility] via [facility] or with Rahel Ram at [facility] via [facility] scan for more detailed/accurat e body fat percentage. All questions were answered and she agrees with this plan. 07/22/2024 Dietary counseling and surveillance (ICD-10 - Z71.3) She is having good appetite suppression and weight loss she would like to continue tirzepatide 5 mg weekly. She will continue to come into the office for these injections. She is aware of our decreasing office supply and the need to order a vial of tirzepatide. She will place that order today prior to leaving and a prescription will be sent to [facility] for tirzepatide. I encouraged her to conitnue a healthy low fat diet and continue to exercise. I praised her on her hard work thus far. I will see her back with me in a month for further evaluation of her weight and goals. I strongly recommended that she do a body composition scan at [facility] via [facility] or with Rahel Ram at [facility] via [facility] scan for more detailed/accurat e body fat percentage. All questions were answered and she agrees with this plan. 07/08/2024 Vitamin D deficiency (ICD-10 - E55.9) continue otc vitamin D as recommended. 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 She will get an injection today and will continue to come in weekly for those. I strongly encouraged her to continue with a healthy diet and to incorporate exercise back into her routine. I will see her back with me in a month for further evaluation of her weight and goals. All questions were answered and she agrees with this plan. 09/02/2024 Vitamin D deficiency (ICD-10 - E55.9) Will continue with vitamin D 09/02/2024 Dietary counseling and surveillance (ICD-10 - Z71.3) I will continue her tirzepatide at 7.5mg weekly for weight loss. I discussed a body comp again today. She reports that the scheduling with [facility] is limited so they haven't scheduled yet. I encouraged her to reach out to Rahel directly as she does add in extra days sometimes, she agrees. I encouraged her to continue with a health diet and to incorporate exercise again. She will continue to come in weekly for her tirzepatide injections. I will see her back with me in a month for further evaluation of her weight and goals. All questions were answered and she agrees with this plan. 08/05/2024 Vitamin D deficiency (ICD-10 - E55.9) Continue with Vitamin D supplementation. 07/08/2024 Dietary counseling and surveillance (ICD-10 - Z71.3) She is having good appetite suppression and weight loss she would like to continue tirzepatide 5 mg weekly. She will continue to come into the office for these injections. She is aware of our decreasing office supply and the need to order a vial of tirzepatide. She will place that order today prior to leaving and a prescription [facility] for tirzepatide. I encouraged her to conitnue a healthy low fat diet and continue to exercise. I praised her on her hard work thus far. I will see her back with me in a month for further evaluation of her weight and goals. I strongly recommended that she do a body composition scan at [facility] via [facility] or with Rahel Ram at [facility] via [facility]Body scan for more detailed/accurat e body fat percentage. All questions were answered and she agrees with this plan. 06/11/2024 Thyroid disease (ICD-10 - E07.9) Continue levothyroxine as prescribed by PCP and keep routine follow-ups as scheduled. 06/11/2024 Bipolar affective disorder, remission status unspecified (ICD-10 - F31.9) 05/07/2024 Thyroid disease (ICD-10 - E07.9) continue levothyroxine as prescribed by PCP. 05/07/2024 Bipolar affective disorder, remission status unspecified (ICD-10 - F31.9) 04/02/2024 Thyroid disease (ICD-10 - E07.9) continue levothyroxine and follow with PCP as directed. 02/19/2024 Bipolar affective disorder, remission status unspecified (ICD-10 - F31.9) 01/02/2024 Anxiety, generalized (ICD-10 - F41.1) 01/02/2024 Thyroid disease (ICD-10 - E07.9) continue care with PCP. 02/19/2024 Anxiety, generalized (ICD-10 - F41.1) 04/02/2024 Bipolar affective disorder, remission status unspecified (ICD-10 - F31.9) 05/07/2024 Anxiety, generalized (ICD-10 - F41.1) 06/11/2024 Anxiety, generalized (ICD-10 - F41.1) 08/05/2024 Dietary counseling and surveillance (ICD-10 - Z71.3) Her vial of tirzepatide has arrived to the clinic and she will start using that today. To further aid with appetite suppression and weight loss I will increase her tirzepatide to 7.5 mg weekly. She will get an injection today and continue to come into the office weekly for these. I encouraged her to continue with healthy diet and to try to get back into the gym even if this is just 2 to 3 days a week rather than the 6 she was doing. I praised her on her hard work and encouraged her to continue making the healthy lifestyle choices she is doing. I will see her back with me in a month for further evaluation of her weight and goals. All questions were answered and she agrees with this plan. I did discuss the body composition again today. 07/08/2024 History of supraventricular tachycardia (ICD-10 - Z86.79) 09/30/2024 History of supraventricular tachycardia (ICD-10 - Z86.79) 09/02/2024 History of supraventricular tachycardia (ICD-10 - Z86.79) 09/02/2024 Inappropriate diet and eating habits (ICD-10 - Z72.4) 08/05/2024 History of supraventricular tachycardia (ICD-10 - Z86.79) 09/30/2024 Inappropriate diet and eating habits (ICD-10 - Z72.4) 07/08/2024 Inappropriate diet and eating habits (ICD-10 - Z72.4) 06/11/2024 Mild depression (ICD-10 - F32.A) 05/07/2024 Mild depression (ICD-10 - F32.A) 04/02/2024 Anxiety, generalized (ICD-10 - F41.1) 02/19/2024 Mild depression (ICD-10 - F32.A) 01/02/2024 Mild depression (ICD-10 - F32.A) 01/02/2024 Migraine syndrome (ICD-10 - G43.909) 02/19/2024 Migraine syndrome (ICD-10 - G43.909) As for her migraines and taking qulipta with semaglutide there are no interactions found between these two medications so I see no issues with her starting this medication for further migraine control. I will fax my office note to her neurologist for their records. 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 05/07/2024 Vitamin D deficiency (ICD-10 - E55.9) She will continue with vitamin d supplementation. 04/02/2024 Migraine syndrome (ICD-10 - G43.909) 01/02/2024 Vitamin D deficiency (ICD-10 - E55.9) continue prescription vitamin D as prescribed by PCP. 02/19/2024 Vitamin D deficiency (ICD-10 - E55.9) continue prescription vitamin D as prescribed by PCP. 02/19/2024 Body mass index [BMI] 39.0-39.9, adult (ICD-10 - Z68.39) 01/02/2024 Body mass index [BMI] 39.0-39.9, adult (ICD-10 - Z68.39) 04/02/2024 Vitamin D deficiency (ICD-10 - E55.9) 05/07/2024 History of supraventricular tachycardia (ICD-10 - Z86.79) 06/11/2024 History of supraventricular tachycardia (ICD-10 - Z86.79) 08/05/2024 Body mass index 33.0-33.9, adult (ICD-10 - Z68.33) 06/11/2024 Inappropriate diet and eating habits (ICD-10 - Z72.4) 05/07/2024 Inappropriate diet and eating habits (ICD-10 - Z72.4) 04/02/2024 Body mass index [BMI] 39.0-39.9, adult (ICD-10 - Z68.39) 02/19/2024 History of supraventricular tachycardia (ICD-10 - Z86.79) 01/02/2024 History of supraventricular tachycardia (ICD-10 - Z86.79) 01/02/2024 Inappropriate diet and eating habits (ICD-10 - Z72.4) 02/19/2024 Inappropriate diet and eating habits (ICD-10 - Z72.4) 05/07/2024 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 (ICD-10 - Z79.899) 04/02/2024 History of supraventricular tachycardia (ICD-10 - Z86.79) 06/11/2024 Other senior care (current) drug therapy (ICD-10 - Z79.899) 05/07/2024 Body mass index [BMI] 34.0-34.9, adult (ICD-10 - Z68.34) 06/11/2024 Body mass index 33.0-33.9, adult (ICD-10 - Z68.33) 02/19/2024 Other senior care (current) drug therapy (ICD-10 - Z79.899) 01/02/2024 Other senior care (current) drug therapy (ICD-10 - Z79.899) 04/02/2024 Inappropriate diet and eating habits (ICD-10 - Z72.4) 04/02/2024 Other senior care (current) drug therapy (ICD-10 - Z79.899) 01/02/2024 Other I spent approximately 45 minutes with patient reviewing health history, dietary and exercise habits, educating on lifestyle changes and purpose/side effects of medication and formulating patient centered plan of care. 02/19/2024 Other . Plan Of Treatment Next Appt Details Provider Name:Elvira gerard, 10/21/2024 11:15:00 AM, [address] [place], [address], Provider Name:Elvira gerard, 10/28/2024 11:45:00 AM, [address] [place], [address], Medications Administered Medication Instructions Date of Administration Dosage Notes Tirzepatide 08/05/2024 7.5 mg Tirzepatide 08/12/2024 7.5 mg Tirzepatide 08/26/2024 7.5 mg Tirzepatide 09/02/2024 7.5 mg Tirzepatide 09/09/2024 7.5 mg Tirzepatide 09/16/2024 7.5 mg Tirzepatide 09/23/2024 7.5 mg Tirzepatide 09/30/2024 7.5 mg Tirzepatide 10/07/2024 39 units Tirzepatide 10/14/2024 7.5 mg Semaglutide 01/02/2024 0.25 mg Semaglutide 01/09/2024 0.25 mg Semaglutide 01/16/2024 0.25 mg Semaglutide 01/23/2024 0.25 mg Semaglutide 02/13/2024 0.25 mg Semaglutide 02/19/2024 0.5 mg Semaglutide 02/26/2024 0.5 mg Semaglutide 03/04/2024 0.5 mg Semaglutide 03/11/2024 0.5 mg Semaglutide 03/20/2024 Semaglutide 03/25/2024 0.5 mg Semaglutide 04/02/2024 0.75 mg Semaglutide 04/09/2024 0.75 mg Semaglutide 04/16/2024 0.75 mg Semaglutide 04/22/2024 0.75 mg Semaglutide 04/22/2024 0.75 mg Tirzepatide 05/07/2024 2.5 mg Tirzepatide 05/14/2024 2.5 mg Tirzepatide 05/27/2024 2.5 mg Tirzepatide 06/04/2024 2.5 mg Tirzepatide 06/11/2024 5 mg Tirzepatide 06/18/2024 5 mg Tirzepatide 06/25/2024 5 mg Tirzepatide 07/08/2024 5 mg Tirzepatide 07/15/2024 5 mg Tirzepatide 07/22/2024 5 mg Tirzepatide 08/19/2024 7.5 mg Medical (General) History Medical History History ICD Code Bipolar 2 Anxiety Sleep Disturbance Depression Chronic Migraines Thyroid Disease, Hypothyroidism SVT Surgical History Surgery Date(Month/Year) Right Knee, Patellar Placement 1998 Left Knee, Patellar Placement 1999 Heart Ablation for SVT 2006 Hysterectomy w/ right oopherectomy 2017 Rhinoplasty, Deviated Septum Repair 2017 Hospitalization History Reason Date(Month/Year) see surgical history
--- NOTE | 2024-10-18 15:54 | XRR_ITS ---
PROCEDURE INFORMATION: Exam: XR Chest Exam date and time: 10/18/2024 5:12 PM Age: 39 years old Clinical indication: Pain; Angina pectoris; Additional info: Cp TECHNIQUE: Imaging protocol: Radiologic exam of the chest. Views: 1 view. COMPARISON: CR XR chest 1V portable [id number] 09/09/2022 4:10 PM FINDINGS: Lungs: Unremarkable. No consolidation. Pleural spaces: Unremarkable. No pleural effusion. No pneumothorax. Heart/Mediastinum: Unremarkable. No cardiomegaly. Bones/joints: Unremarkable. XR/XR chest 1V portable [id number] IMPRESSION: No acute findings.
--- OUTSIDE RECORDS SUMMARY | 2024-10-18 15:54 | XMS_ITS | Clinical Summary ---
Author Organization [facility] Address [address] [place] [address] Phone Care Team Providers Care Patent Prosecution Paralegal Name Role Phone Sridhar Messina Primary Care Provider [phone] Allergies Active Allergy Reactions Criticality Noted Date Comments Amoxicillin Hives High 12/16/2010 Azithromycin Hives High 12/16/2010 Cefuroxime Axetil Hives High 12/16/2010 Levofloxacin Hives High 12/16/2010 Medications diphenhydrAMINE (BENADRYL) 25 mg tablet Take 25 mg by mouth every 6 hours as needed for Allergies. Active montelukast (SINGULAIR) 10 mg tablet Take 10 mg by mouth daily at bedtime. Active tiZANidine (ZANAFLEX) 2 mg Capsule Take 2 mg by mouth every 6 hours as needed for Spasm. Active clonazePAM (KlonoPIN) 1 mg tablet Take 1 mg by mouth 1 time daily as needed for Anxiety. Active promethazine (PHENERGAN) 25 mg tablet Take 25 mg by mouth every 6 hours as needed for Nausea/Emesis . Active ibuprofen (MOTRIN) 600 mg tabletIndicatio ns:Postoperativ e pain Take 1 Tablet (600 mg) by mouth every 6 hours. 40 Tablet 08/16/2016 Active venlafaxine (EFFEXOR XR) 150 mg Extended Release 24 hour capsule Take 150 mg by mouth daily. 0 04/11/2018 Active venlafaxine (EFFEXOR XR) 75 mg Extended Release 24 hour capsule Take 75 mg by mouth daily. 05/10/2018 Active levothyroxine 75 mcg tablet Take 75 mcg by mouth daily. 05/08/2018 Active lamoTRIgine (LaMICtal) 100 mg tablet Take 300 mg by mouth daily. 2 02/13/2018 Active amitriptyline (ELAVIL) 25 mg tablet Take 25 mg by mouth daily. 05/10/2018 Active ZOLMitriptan (ZOMIG) 2.5 mg tablet Take 2.5 mg by mouth 1 time daily as needed. 05/08/2018 Active nystatin (NYSTOP) 100,000 unit/gram powderIndicatio ns:Rash Apply to affected area 2 times daily. 60 Gram 05/10/2018 Active calcium-choleca lciferol (OS-RENEA 500+D) 500 mg(1,250mg) -200 unit tablet Take 1 Tablet by mouth daily. Active cyanocobalamin 1,000 mcg Tablet Take 1,000 mcg by mouth daily. Active coenzyme Q10 Capsule Take 10 mg by mouth daily. 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 05/08/2015 Esophoria 05/07/2015 Hyperopia with astigmatism 05/07/2015 Vertigo 05/07/2015 Imbalance 05/07/2015 Chronic migraine without aur a, with intractable migraine, so stated, with status migrainosus 04/13/2015 Migrainous vertigo 04/13/2015 Dizziness 04/13/2015 Cervicalgia 04/13/2015 Resolved Problems Problem Noted Date Diagnosed Date Resolved Date Postoperative pain 08/16/2016 7 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 09/29/2016 Menorrhagia with irregular cycle 05/24/2016 09/29/2016 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) 05/24/2016 09/29/2016 Immunizations Immunization Administration Dates Next Due Influenza Seasonal Unspecified Formulation IM Family History Medical History Relation Name Comments Depression Father Heart Disease Father Depression Mother Heart Disease Mother Hypertension Mother Stroke Mother Depression Sister Relation Name Status Comments Father Mother Sister Social History Tobacco Use Types Packs/Day Years Used Date Smoking Tobacco: Never Smokeless Tobacco: Never Tobacco Cessation:Counseling Given: Yes Alcohol Use Standard Drinks/Week Comments No 0 (1 standard drink = 0.6 oz pur e alcohol) Comments No Sex and Gender Information Value Date Recorded Sex Assigned at Not on file 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 Gender Identity Not on file Sexual Orientation Not on file Last Filed Vital Signs Vital Sign Reading Time Taken Comments Blood Pressure 132/70 06/07/2018 3:09 PM CDT Pulse 84 08/16/2016 3:06 PM CDT Temperature 37.1 C (98.7 F) 08/16/2016 3:06 PM CDT Respiratory Rate 18 08/03/2016 5:05 PM CDT Oxygen Saturation 95% 08/03/2016 5:05 PM CDT Inhaled Oxygen Concentration - - Weight 88.9 kg (196 lb) 06/07/2018 3:09 PM CDT Height 162.6 cm (5' 4 ) 06/07/2018 3:09 PM CDT Body Mass Index 33.64 06/07/2018 3:09 PM CDT Plan of Treatment Health Maintenance Due Date Last Done Comments HPV VACCINES (1 - 3-dose series) 1998 DTAP/TDAP/TD VACCINES (1 - Tdap) 2002 HEPATITIS B VACCINES (1 of 3 - 19+ 3-dose series) 2002 BREAST CANCER SCREENING 2023 INFLUENZA VACCINE (#1) 2024 06/07/2018, 2015 Insurance [place]ICA[place] Advance Directives For more information, please contact: [phone] * Full Code (Latest Code Status on File) Date Activated Date Inactivated Comments 08/03/2016 1:00 PM 08/04/2016 12:20 AM * Full Code Date Activated Date Inactivated Comments 08/03/2016 11:00 AM 08/03/2016 1:00 PM * Full Code Date Activated Date Inactivated Comments 08/03/2016 8:53 AM 08/03/2016 11:00 AM Care Teams Patent Prosecution Paralegal Relationship Specialty Start Date End Date Sridhar Messina PA PCP - General Physician Architectural Technologist 12/16/10
--- OUTSIDE RECORDS SUMMARY | 2024-10-18 15:54 | XMS_ITS | Encounter Summary ---
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) Social History Tobacco Use Types Packs/Day Years Used Date Smoking Tobacco: Never Assessed Comments Unknown Sex and Gender Information Value Date Recorded Sex Assigned at Not on file 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
--- OUTSIDE RECORDS SUMMARY | 2024-10-18 15:54 | XMS_ITS | Encounter Summary ---
Author Organization [facility] Address [address] [place] [address] Care Team Providers Care Denture Finisher Name Role Phone Sridhar Messina Primary Care Provider [phone] Reason for Referral * Outpatient Services (Routine) - Closed Specialty Diagnoses / Procedures Referred By Ruthy obrien Referred To Contact Diagnoses Headache(784.0) Procedures MRI BRAIN W WO CONTRAST Stevo Hope MD [address] [place] [address] Phone: tel: fax: [facility] Pre-Registration [place] CALL TO MAKE APPOINTMENT ONLY [address] [place] [address] Phone: tel: fax: Referral ID Status Reason Start Date Expiration Date V isits Requested Visits Authorized [id number] Closed [facility] TO SCHEDULE ([facility]) 05/13/2014 06/11/2014 1 1 Encounter Details Date Type Department Care Team (Latest Contact Info) Description 05/13/2014 Ancillary Orders [facility] Pre-Registration [place] CALL TO MAKE APPOINTMENT ONLY [address] [place] [address] Stevo Hope MD [address] [place] [address] Headache(784.0) (Primary Dx) Social History Tobacco Use Types Packs/Day Years Used Date Smoking Tobacco: Never Alcohol Use Standard Drinks/Week Comments No 0 (1 standard drink = 0.6 oz pur e alcohol) Comments No Sex and Gender Information Value Date Recorded Sex Assigned at Not on file 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 Exam: MRI BRAIN W WO CONTRAST Date/Time of Exam: May 23, 2014 12:15:47 PM Reason For Exam: Headache(784.0). Technique: MRI of the brain was performed prior to and following the administration of intravenous contrast. Contrast: 20 mL OptiMARK The brain shows no old insults or masses or abnormal fluid collections. The intracranial flow-voids are unremarkable. The posterior fossa has a normal appearance of the brainstem and cerebellum. The intracranial flow-voids appear normal. Ventricles are normal. The brain shows no sites of abnormal signal on FLAIR images. Diffusion-weighted imaging is normal. The paranasal sinuses are clear. The skull base appears normal. Susceptibility weighted imaging is normal. Postcontrast images show no sites of abnormal enhancement and a normal appearance of the meninges. Impression: No appreciable abnormality. Narrative Procedure Note Al Abbasi MD - 05/23/2014 IMPRESSION IMPRESSION: See report below. Exam: MRI BRAIN W WO CONTRAST Date/Time of Exam: May 23, 2014 12:15:47 PM Reason For Exam: Headache(784.0). Technique: MRI of the brain was performed prior to and following the administration of intravenous contrast. Contrast: 20 mL OptiMARK The brain shows no old insults or masses or abnormal fluid collections. The intracranial flow-voids are unremarkable. The posterior fossa has a normal appearance of the brainstem and cerebellum. The intracranial flow-voids appear normal. Ventricles are normal. The brain shows no sites of abnormal signal on FLAIR images. Diffusion-weighted imaging is normal. The paranasal sinuses are clear. The skull base appears normal. Susceptibility weighted imaging is normal. Postcontrast images show no sites of abnormal enhancement and a normal appearance of the meninges. Impression: No appreciable abnormality. us Stevo Hope MD MR ORDERABLES Final Result documented in this encounter Visit Diagnoses Diagnosis Headache(784.0)- Primary Headache Headache(784.0) Headache documented in this encounter Care Teams Denture Finisher Relationship Specialty Start Date End Date Sridhar Messina PA PCP - General Physician Digital Strategist Senior Manager 12/16/10 documented as of this encounter
--- OUTSIDE RECORDS SUMMARY | 2024-10-18 15:54 | XMS_ITS | Encounter Summary ---
Author Organization [facility] Address [address] [place] [address] Care Team Providers Care Cloth Covered Helmet Puller Name Role Phone Sridhar Messina Primary Care Provider [phone] Encounter Details Date Type Department Care Team (Latest Contact Info) Description 11/10/1999 Outpatient Historical [facility] Rheumatology- [facility] [place] [address] [place] [address] Bucky Keller MD NO ADDRESS ON FILE Rheumatism, unspecified and fibrositis (Primary Dx) Social History Tobacco Use Types Packs/Day Years Used Date Smoking Tobacco: Never Assessed Comments Unknown Sex and Gender Information Value Date Recorded Sex Assigned at Not on file 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
--- OUTSIDE RECORDS SUMMARY | 2024-10-18 15:54 | XMS_ITS | Clinical Summary ---
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 Active montelukast (SINGULAIR) 10 mg tablet Take 10 mg by mouth daily at bedtime. Active rosuvastatin (CRESTOR) 10 mg tablet 5 mg. Patient is taking 5mg 1 Active levothyroxine 75 mcg tablet Take 75 mcg by mouth daily in the morning. Active propranoloL (INDERAL) 20 mg tablet Take 20 mg by mouth 3 times daily. 2 Active ziprasidone (GEODON) 80 mg Capsule Take 80 mg by mouth 2 times daily with meals. Active gabapentin (NEURONTIN) 300 mg capsule Take 300 mg by mouth 2 times daily. Active magnesium oxide 500 mg Capsule Take 500 mg by mouth daily. Active CALCIUM CARBONATE-VITAM IN D3 ORAL Take 1,250 mcg/day by mouth. Active promethazine (PHENERGAN) 25 mg tabletIndicatio ns:Chronic migraine without aura, with intractable migraine, so stated, with status migrainosus,Med ication refill Take 1 Tablet (25 mg) by mouth every 6 hours as needed for Nausea/Emesis. 20 Tablet 5 3 Active cetirizine (ZyrTEC) 10 mg tablet Take 10 mg by mouth daily. Active haloperidoL (HALDOL) 0.5 mg tablet Take 0.5 mg by mouth every 6 hours. Active OXcarbazepine (TRILEPTAL) 300 mg tablet Take 300 mg by mouth 2 times daily. Active OXcarbazepine (TRILEPTAL) 150 mg tablet Take 150 mg by mouth 2 times daily. Active Ubrelvy 100 mg tabletIndicatio ns:Chronic migraine without aura, with intractable migraine, so stated, with status migrainosus,Med ication refill TAKE ONE TABLET BY MOUTH ONCE DAILY NEEDED FOR PAIN 10 Tablet 11 5 Active tirzepatide 7.5 mg/0.3 mL Syringe Inject by subcutaneous injection every 7 days. Active atogepant (Qulipta) 60 mg TabletIndicatio ns:Chronic migraine without aura, with intractable migraine, so stated, with status migrainosus,Med ication refill Take 1 Tablet (60 mg) by mouth daily. 30 Tablet 11 5 Active amitriptyline (ELAVIL) 100 mg tabletIndicatio ns:Chronic migraine without aura, with intractable migraine, so stated, with status migrainosus,Med ication refill Take 1 Tablet (100 mg) by mouth daily at bedtime. 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 05/08/2015 Hyperopia with astigmatism 05/07/2015 Vertigo 05/07/2015 Imbalance 05/07/2015 Cervicalgia 04/13/2015 Migrainous vertigo 04/13/2015 Chronic migraine without aur a, with intractable migraine, so stated, with status migrainosus 04/13/2015 Dizziness 04/13/2015 Resolved Problems Problem Noted Date Diagnosed Date Resolved Date Postoperative pain 08/16/2016 7 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 09/29/2016 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) 05/24/2016 09/29/2016 Menorrhagia with irregular cycle 05/24/2016 09/29/2016 Esophoria 05/07/2015 06/08/2021 Encounters Date Type Department Care Team Description 10/08/2024 External Device Data [facility] ABSTRACTION Provider, Abstract 09/18/2024 External Device Data [facility] ABSTRACTION Provider, Abstract 09/18/2024 External Device Data [facility] ABSTRACTION Provider, Abstract 09/17/2024 External Device Data [facility] ABSTRACTION Provider, Abstract 08/20/2024 External Device Data [facility] ABSTRACTION Provider, Abstract 07/25/2024 External Device Data [facility] ABSTRACTION Provider, Abstract 07/23/2024 External Device Data [facility] ABSTRACTION Provider, Abstract from Last 3 Months Immunizations Immunization Administration Dates Next Due Influenza Seasonal Unspecified Formulation IM Family History Medical History Relation Name Comments Healthy Brother Unknown Father Depression Mother Heart Disease Mother Hypertension Mother Stroke Mother Healthy Sister Relation Name Status Comments Brother Alive Father Alive Mother Alive Sister Alive Son Alive Social History Tobacco Use Types Packs/Day Years Used Date Smoking Tobacco: Never Smokeless Tobacco: Never Tobacco Cessation:Counseling Given: Not Answered Alcohol Use Standard Drinks/Week Comments No 0 (1 standard drink = 0.6 oz pur e alcohol) Comments No Sex and Gender Information Value Date Recorded Sex Assigned at Not on file 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 Gender Identity Not on file Sexual Orientation Not on file Last Filed Vital Signs Vital Sign Reading Time Taken Comments Blood Pressure 128/62 06/27/2024 10:52 AM CDT Pulse 85 06/27/2024 10:52 AM CDT Temperature 37.1 C (98.7 F) 08/16/2016 3:06 PM CDT Respiratory Rate 16 06/27/2024 10:52 AM CDT Oxygen Saturation 98% 06/27/2024 10:52 AM CDT Inhaled Oxygen Concentration - - Weight 85.5 kg (188 lb 9.6 oz) 06/27/2024 10:52 AM CDT Height 162.6 cm (5' 4 ) 12/27/2023 8:06 AM CDT Body Mass Index 32.37 12/27/2023 8:06 AM CDT Plan of Treatment Upcoming Encounters Date Type Department Care Team (Late st Contact Info) Description 12/31/2024 12:30 PM CDT Office Visit [facility] [place] [address] [place] [address] Sridhar Patterson, GEREMIAS [address] [place] [address] Health Maintenance Due Date Last Done Comments Pre-Diabetes and Diabetes Screening 1985 HPV VACCINES (1 - 3-dose series) 1998 DTAP/TDAP/TD VACCINES (6 - Tdap) 10/22/1998 10/21/1998, 01/02/1987, 1985, Additional history exists BREAST CANCER SCREENING 2023 INFLUENZA VACCINE (#1) 2024 06/07/2018, 2015 HEPATITIS B VACCINES Completed 04/28/1999, 11/25/1998, 10/21/1998 Insurance MEDICAID [facility] DUAL COMPLETE HMO [facility] [id number] Care Teams 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
--- NOTE | 2024-10-18 15:59 | ECG_ITS ---
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 Measurements Intervals [place] Rate: 85 P: 49 IN: 154 QRS: 13 QRSD: 85 T: 53 QT: 355 QTc: 423 Interpretive Statements SINUS RHYTHM Compared to ECG 05/23/2022 10:55:28 NO SIGNIFICANT CHANGE Electronically Signed On 10-19-2024 20:57:43 CDT by Jorge Villagomez M.D. [id number]
[2024-10-18 16:03] VITALS: BP 153/102; PULSE 85; RESP 16; TEMP 37.2; O2SAT 99
[2024-10-18 17:10] LABS: Hematocrit 38.2 % (36-47); Hemoglobin 12.60 g/dL (11.27-16.99); Mean Corpuscular HGB Conc 33.0 g/dL (30-55); Mean Corpuscular Hemoglobin 31.1 pg (27-33); Mean Corpuscular Volume 94.3 fl (85-98); Nucleated Red Blood Cells % 0 %; Platelet Count 182 10^3/cmm (157-399); Red Blood Count 4.05 10^6/uL (3.85-5.65); White Blood Count 5.85 10^3/uL (3.29-11.43)
[2024-10-18 17:23] LABS: Troponin(5th) Baseline < 6 ng/L (0-10)
[2024-10-18 17:30] LABS: Alanine Aminotransferase 13 U/L (0-33); Albumin Level 4.7 g/dL (3.5-5.2); Alkaline Phosphatase 46 U/L (35-105); Anion Gap 16.7 (5-19); Aspartate Amino Transferase 11 U/L (0-32); Blood Urea Nitrogen 8 mg/dL (6-20); Calcium 9.0 mg/dL (8.5-10.5); Carbon Dioxide 21 mmol/L (22-29); Chloride 101 mmol/L (98-107); Creatinine Clr Calc Pharmacy 117.7905; Globulin 2.2 g/dL (1.3-4.6); Glucose 86 mg/dL (65-115); Lipase 33 U/L (13-60); Osmolality Calculated 278 mOsm/kg (285-295); Potassium 3.7 mmol/L (3.5-5.1); Sodium 135 mmol/L (136-145); Total Protein 6.9 g/dL (6.6-8.7)
[2024-10-18 19:23] LABS: Troponin 5 2HR < 6.0 ng/L (0-10); Troponin 5 2HR Delta 0 ABS# (0-10)
[2024-10-18 19:38] VITALS: BP 131/86; PULSE 89; RESP 24; O2SAT 98
--- NOTE | 2024-10-18 19:51 | W.ED.CHESTPA ---
HPI - Chest Pain General: Chief Complaint: Chest Pain Stated Complaint: cp Time Seen by Provider: 10/18/24 19:28 History of Present Illness: Patient presents with chest pain that began on Monday, initially feeling like she had pulled something despite not engaging in any strenuous activities. The pain is described as deep, not superficial, and is significantly exacerbated by bending over, at which point it radiates to her breast and nipple with a burning, ripping sensation. She is able to reach, lift, and stretch without significant discomfort, but bending forward triggers intense pain that brings her to tears. She was evaluated by her primary care physician on Monday, who suspected early shingles given the unilateral nature and quality of the pain. She was prescribed tramadol, which provided temporary relief for approximately 4 hours before the pain returned. Today, her symptoms have worsened with the onset of nausea and vomiting, which also exacerbates her pain due to the forward bending motion required. She reports a dry cough that has been present for the past week and a half, which does not worsen her chest pain. She had a normal mammogram earlier this year. She denies fever, shortness of breath, or lower extremity swelling. Related Data Home Medications ?Medication ?Instructions ?Recorded ?Confirmed ubrogepant 100 mg tablet (Ubrelvy) 100 mg PO DAILY PRN migraine 08/10/20 10/16/24 promethazine 25 mg tablet 25 mg PO Q6H PRN nausea/emesis 03/29/23 10/16/24 atogepant 60 mg tablet (Qulipta) 60 mg PO DAILY 04/01/24 10/16/24 tirzepatide 2.5 mg/0.5 mL mg SUBCUT 05/21/24 10/16/24 subcutaneous pen injector (Mounjaro) amitriptyline 100 mg tablet 100 mg PO DAILY 10/16/24 10/16/24 Previous Rx's ?Medication ?Instructions ?Recorded magnesium oxide 500 mg (2 x 250 mg magnesium) PO 09/10/22 DAILY #180 tabs rosuvastatin 5 mg tablet See Rx Instructions .Route 01/12/24 .COMPLEX #90 tabs cholecalciferol (vitamin D3) 125 125 mcg PO DAILY #90 caps 06/05/24 mcg (5,000 unit) capsule levothyroxine 75 mcg tablet 75 mcg PO DAILY #90 tabs 06/05/24 cariprazine 3 mg capsule (Vraylar) 3 mg PO .morning #90 caps 07/09/24 oxcarbazepine 300 mg tablet 300 mg PO BID #180 tabs 07/09/24 (Trileptal) cetirizine 10 mg tablet (Zyrtec) 10 mg PO DAILY #30 tabs 09/27/24 fluticasone propionate 50 2 spray intranasal DAILY #16 grams 09/27/24 mcg/actuation nasal spray,suspension (Flonase Allergy Relief) clonazepam 0.5 mg tablet 0.25 mg (1/2 x 0.5 mg) PO BID PRN 10/16/24 severe anxiety/panic attacks #30 tabs propranolol 20 mg tablet 20 mg PO TID #270 tabs 10/16/24 tramadol 50 mg tablet 50 mg PO Q6H PRN pain 5 days #20 10/16/24 tabs valacyclovir 1 gram tablet 1,000 mg PO Q8H 7 days #21 tabs 10/16/24 hydrocodone 5 mg-acetaminophen 325 1 tab PO Q8H PRN pain #7 tabs 10/18/24 mg tablet methylprednisolone 4 mg tablets in See Rx Instructions PO .COMPLEX 10/18/24 a dose pack (Medrol (Rudi)) #21 ea Allergies Allergy/AdvReac Type Severity Reaction Status Date / Time azithromycin (From Zithromax) Allergy Severe ALGY-Difficulty Verified 10/16/24 14:23 Breathing cefuroxime (From Ceftin) Allergy Severe ALGY-Difficulty Verified 10/16/24 14:23 Breathing Penicillins Allergy Severe ALGY-Difficulty Verified 10/16/24 14:23 Breathing levofloxacin (From Levaquin) Allergy Mild hypertensio Verified 10/16/24 14:23 n cyclobenzaprine AdvReac Intermediate does not Verified 10/16/24 14:23 work onabotulinumtoxinA (From AdvReac Intermediate itching Verified 10/16/24 14:23 Botox) [facility] ED PFSH: Medical History Bereavement Loss of on 05/13/22 Bipolar I disorder, most recent episode mixed, severe without psychotic features Psychiatric care Borderline personality disorder Generalized anxiety disorder Chronic post-traumatic stress disorder Migraine Social History Smoking and tobacco/nicotine status: never used tobacco/nicotine Alcohol intake: never Substance/Drug Use: current Other substance/drug use details: Medical marijuana Supplemental [facility] Information: Supraventricular tachycardia (SVT) with recent episodes last week that were brief and self-resolved Physical Exam Const: COMMON NORMALS: no acute distress GENERAL APPEARANCE: cooperative; not ill appearing and not frail appearing HENMT: COMMON NORMALS: normocephalic, atraumatic and Normal external nose present HEAD & SCALP: normocephalic and atraumatic FACE & SINUS: normal facial exam and face symmetric NOSE: Normal external nose present Eye: COMMON NORMALS: Equal, round and reactive pupils present and EOMs intact bilaterally PUPIL: Yes Equal, round and reactive pupils present Neck/C-Spine: GENERAL: Yes trachea midline Chest: CHEST: Yes Symmetrical chest wall rise OTHER: Tenderness to palpation on affected side No shooting pain reproduced with direct palpation Resp: COMMON NORMALS: normal respiratory effort, No retractions, No use of accessory muscles and clear to auscultation bilaterally AUSCULTATION: clear to auscultation bilaterally Cardio: COMMON NORMALS: regular rate and regular rhythm RATE: regular rate RHYTHM: regular rhythm GI: COMMON NORMALS: Normal to inspection, nondistended, normoactive bowel sounds present Extremity: COMMON NORMALS: no pedal edema Neuro: HELEN COMA SCALE: document GCS findings Helen coma scale eye opening: Spontaneous Helen coma scale verbal response: Orientated [place] coma scale motor response: Obey commands [place] coma scale total score: 15 SENSORY EXAM: Yes extremities (intact) Psych: COMMON NORMALS: speech normal SPEECH: Yes normal speech Skin: COMMON NORMALS: no rashes or lesions noted GENERAL SKIN EXAM: no rashes or lesions noted Course Vital Signs: Vital signs: Vital Signs Temperature 98.9 F 10/18/24 16:03 Pulse Rate 94 10/18/24 21:26 Respiratory Rate 17 10/18/24 21:26 Blood Pressure 151/88 10/18/24 21:26 Pulse Oximetry 96 10/18/24 21:26 Oxygen Delivery Me thod Room Air 10/18/24 20:30 MDM - Chest Pain Medical Decision Making Differential diagnosis includes musculoskeletal strain, intercostal neuralgia, or early herpes zoster (shingles). Given the unilateral nature, deep quality, and radiation pattern, along with the absence of rash after several days, shingles remains a consideration though less likely. The pain pattern and exacerbating factors suggest possible intercostal nerve involvement. - Continue pain management as needed - Monitor for development of vesicular rash - Consider alternative diagnoses if symptoms persist without rash development EKG shows a sinus rhythm with no acute ST wave changes. Vitals are essentially stable. Mild diastolic hypertension. CBC is normal. BMP is not remarkable. Chest x-ray is nonacute. Troponin is less than 6 x 2. Lipase is normal. Pain is somewhat reproducible. It is a neuralgia type pain. No vesicular rash or rash at all to indicate varicella. She will be placed on a tapering dose of steroid for neuralgia and/or chest wall pain. Short course pain medication. Outpatient follow-up. Return for worsening. Lab Data 10/18/24 16:58 10/18/24 16:58 Radiology Impressions Chest X-Ray 10/18/24 15:54 IMPRESSION: No acute findings. Laboratory Results WBC 5.85 10^3/uL (3.29-11.43) 10/18/24 16:58 RBC 4.05 10^6/uL (3.85-5.65) 10/18/24 16:58 Hgb 12.60 g/dL (11.27-16.99) 10/18/24 16:58 Hct 38.2 % (36-47) 10/18/24 16:58 MCV 94.3 fl (85-98) 10/18/24 16:58 MCH 31.1 pg (27-33) 10/18/24 16:58 MCHC 33.0 g/dL (30-55) 10/18/24 16:58 RDW 13.3 % (12.1-15.1) 10/18/24 16:58 Plt Count 182 10^3/cmm (157-399) 10/18/24 16:58 MPV 9.7 fL (7.4-10.4) 10/18/24 16:58 Neut % (Auto) 50.3 % 10/18/24 16:58 Lymph % (Auto) 35.0 % 10/18/24 16:58 [place] % (Auto) 9.6 % 10/18/24 16:58 Eos % (Auto) 4.1 % 10/18/24 16:58 Baso % (Auto) 0.7 % 10/18/24 16:58 Neut # (Auto) 2.94 10^3/uL (1.8-7.7) 10/18/24 16:58 Lymph # (Auto) 2.1 10^3/uL (0.8-4.8) 10/18/24 16:58 [place] # (Auto) 0.6 10^3/uL (0.2-0.9) 10/18/24 16:58 Eos # (Auto) 0.2 10^3/uL (0.0-0.8) 10/18/24 16:58 Baso # (Auto) 0.0 10^3/uL (0.0-0.1) 10/18/24 16:58 Nucleated RBC % (auto) 0 % 10/18/24 16:58 Nucleated RBCs # 0.0 /100WBC 10/18/24 16:58 Sodium 135 mmol/L (136-145) L 10/18/24 16:58 Potassium 3.7 mmol/L (3.5-5.1) 10/18/24 16:58 Chloride 101 mmol/L (98-107) 10/18/24 16:58 Carbon Dioxide 21 mmol/L (22-29) L 10/18/24 16:58 Anion Gap 16.7 (5-19) 10/18/24 16:58 BUN 8 mg/dL (6-20) 10/18/24 16:58 Creatinine 0.6 mg/dL (0.5-0.9) 10/18/24 16:58 GFR Calculation 110.2 mL/min (90-130) 10/18/24 16:58 Glucose 86 mg/dL (65-115) 10/18/24 16:58 Calculated Osmolality 278 mOsm/kg (285-295) L 10/18/24 16:58 Calcium 9.0 mg/dL (8.5-10.5) 10/18/24 16:58 Total Bilirubin 0.4 mg/dL (0.15-1.2) 10/18/24 16:58 AST 11 U/L (0-32) 10/18/24 16:58 ALT 13 U/L (0-33) 10/18/24 16:58 Alkaline Phosphatase 46 U/L (35-105) 10/18/24 16:58 Troponin T Baseline < 6 ng/L (0-10) 10/18/24 16:58 Troponin T 120 Minute < 6.0 ng/L (0-10) 10/18/24 18:46 Delta Troponin T 0 ABS# (0-10) 10/18/24 18:46 Total Protein 6.9 g/dL (6.6-8.7) 10/18/24 16:58 Albumin 4.7 g/dL (3.5-5.2) 10/18/24 16:58 Globulin 2.2 g/dL (1.3-4.6) 10/18/24 16:58 Lipase 33 U/L (13-60) 10/18/24 16:58 All radiology interpretation(s) finalized by discharge Discharge Plan Discharge Patient Disposition: Home Clinical Impression: Atypical chest pain Condition: Stable Prescriptions: New hydrocodone-acetaminophen 5-325 mg tablet 1 tab PO Q8H PRN (Reason: pain) Qty: 7 0RF methylprednisolone [Medrol (Rudi)] 4 mg tablets,dose pack See Rx Instructions .ROUTE .COMPLEX Qty: 21 0RF Rx Instructions: orally per package directions No Action Ubrelvy 100 mg tablet 100 mg PO DAILY PRN (Reason: migraine) Mounjaro 2.5 mg/0.5 mL pen injector SUBCUT cetirizine [Zyrtec] 10 mg tablet 10 mg PO DAILY Qty: 30 0RF fluticasone propionate [Flonase Allergy Relief] 50 mcg/actuation spray,suspension 2 spray intranasal DAILY Qty: 16 0RF Rx Instructions: administer into each nostril Qulipta 60 mg tablet 60 mg PO DAILY oxcarbazepine [Trileptal] 300 mg tablet 300 mg PO BID Qty: 180 2RF Rx Instructions: Take one tablet twice per day Vraylar 3 mg capsule 3 mg PO .morning Qty: 90 2RF Rx Instructions: Take one capsule every morning amitriptyline 100 mg tablet 100 mg PO DAILY clonazepam 0.5 mg tablet 0.25 mg PO BID PRN (Reason: severe anxiety/panic attacks) Qty: 30 2RF Rx Instructions: Take one tablet twice per day as needed for severe anxiety/panic attacks propranolol 20 mg tablet 20 mg PO TID Qty: 270 2RF tramadol 50 mg tablet 50 mg PO Q6H PRN (Reason: pain) 5 Days Qty: 20 0RF valacyclovir 1 gram tablet 1,000 mg PO Q8H 7 Days Qty: 21 0RF rosuvastatin 5 mg tablet See Rx Instructions .ROUTE .COMPLEX Qty: 90 1RF Dose Instruction: TAKE ONE TABLET BY MOUTH AT BEDTIME ONCE DAILY Rx Instructions: TAKE ONE TABLET BY MOUTH AT BEDTIME ONCE DAILY levothyroxine 75 mcg tablet 75 mcg PO DAILY Qty: 90 3RF cholecalciferol (vitamin D3) 125 mcg (5,000 unit) capsule 125 mcg PO DAILY Qty: 90 3RF magnesium oxide 250 mg magnesium tablet 500 mg PO DAILY Qty: 180 0RF promethazine 25 mg tablet 25 mg PO Q6H PRN (Reason: nausea/emesis) Discharge Orders: Discharge ED (Routine); Ordered 10/18/24 Ordered By: Marin Lincoln Referrals: Alexandra Fergusno, RECOVERY ROOM NURSE [Primary Care Provider, Family Practice] - 4-7 days Patient Instructions: Chest Wall Pain (ED), Opioid Safety, Pain Management, Patient Portal & Cordell Instructions Print Language: [place] Coding Level of Care Code ED Loss Prevention Auditor for Roxi Delgado
[2024-10-18 20:08] VITALS: BP 134/98; PULSE 86; RESP 18; O2SAT 97
--- NOTE | 2024-10-18 20:26 | ECG_ITS ---
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 Measurements Intervals [place] Rate: 84 P: 58 PA: 153 QRS: 44 QRSD: 88 T: 49 QT: 369 QTc: 438 Interpretive Statements SINUS RHYTHM Compared to ECG 10/18/2024 15:59:20 No significant changes Electronically Signed On 10-20-2024 17:14:29 CDT by Jorge Villagomez M.D. [email or web address] [id number]
[2024-10-18 20:30] VITALS: BP 133/98; PULSE 94; RESP 16; O2SAT 100
[2024-10-18 21:26] VITALS: BP 151/88; PULSE 94; RESP 17; O2SAT 96
== END 2024-10-18 21:20 | disposition home or self-care (01) ==
PROVIDERS: Emergency Medicine; Emergency Provider Emergency Medicine; PCP Nurse Practitioner Family
DX: R07.89 Other chest pain (principal)
CPT/HCPCS: 36415; 71045; 80053; 83690; 84484; 85025; 93005; 96374; 96375; 99285; J1100; J1885

== ENCOUNTER 2024-11-25 11:05 | Outpatient (CLI) | payer MEDICARE, SELFPAY ==
--- NOTE | 2024-11-25 11:15 | MM_ITS ---
WS: [id number] DIAGNOSTIC BILATERAL DIGITAL BREAST TOMOSYNTHESIS MAMMOGRAPHY WITH CAD Bilateral breast ultrasound, limited. HISTORY: N64.4 - Mastodynia COMPARISON: 12/20/2023 TECHNIQUE: Bilateral craniocaudad, mediolateral oblique, and mediolateral views are submitted with tomosynthesis and SM. Spot compression LEFT MLO. Computer aided detection utilized. Breast composition: There are scattered areas of fibroglandular density. No mass or asymmetry noted in the LEFT breast in the area of pain and discomfort in the upper outer quadrant. There is a 5 mm mass in the posterior medial RIGHT breast. This mass was present on the prior study and slightly larger in size but this may be a small lymph node. This is a well-circumscribed mass of increased density. Ultrasound to follow. Bilateral breast ultrasound, limited. LEFT: No ultrasound abnormality noted in the area of pain LEFT breast. Ultrasound directed along the 5:00 axis. RIGHT breast: There is a very small lobulated cyst measuring 4 x 3 x 6 mm. MM/MM diag BI tomosynthesis [id number] IMPRESSION: BI-RADS: 2 - Benign. FOLLOW UP: 1 Year Follow-up
--- NOTE | 2024-11-25 11:45 | US_ITS ---
WS: [id number] DIAGNOSTIC BILATERAL DIGITAL BREAST TOMOSYNTHESIS MAMMOGRAPHY WITH CAD Bilateral breast ultrasound, limited. HISTORY: N64.4 - Mastodynia COMPARISON: 12/20/2023 TECHNIQUE: Bilateral craniocaudad, mediolateral oblique, and mediolateral views are submitted with tomosynthesis and SM. Spot compression LEFT MLO. Computer aided detection utilized. Breast composition: There are scattered areas of fibroglandular density. No mass or asymmetry noted in the LEFT breast in the area of pain and discomfort in the upper outer quadrant. There is a 5 mm mass in the posterior medial RIGHT breast. This mass was present on the prior study and slightly larger in size but this may be a small lymph node. This is a well-circumscribed mass of increased density. Ultrasound to follow. Bilateral breast ultrasound, limited. LEFT: No ultrasound abnormality noted in the area of pain LEFT breast. Ultrasound directed along the 5:00 axis. RIGHT breast: There is a very small lobulated cyst measuring 4 x 3 x 6 mm. US/US breast BI limited* [id number] IMPRESSION: BI-RADS: 2 - Benign. FOLLOW UP: 1 Year Follow-up
== END 2024-11-25 11:06 | disposition home or self-care (01) ==
LOC: RAD 11:09
PROVIDERS: PCP Nurse Practitioner Family; Visit Provider Nurse Practitioner Family
DX: N64.4 Mastodynia (principal); R92.323 Mammographic fibroglandular density, bilateral breasts; N64.89 Other specified disorders of breast; N63.12 Unspecified lump in the right breast, upper inner quadrant
CPT/HCPCS: 76642; 77062; G0279

== ENCOUNTER → 2024-12-03 09:00 | Outpatient (BNVA) | payer MEDICARE, SELFPAY | PROVIDERS: PCP Nurse Practitioner Family; Visit Provider Nurse Practitioner Family | DX: E78.5 Hyperlipidemia, unspecified (principal) | CPT/HCPCS: 80053; 80061 ==